=== PATIENT | male | born 1970 | race Caucasian/White ===

== ENCOUNTER 2019-12-10 10:08 | Inpatient (IN) ==
[2019-12-10] MEDS ORDERED: ONDANSETRON INJ 2 MG/ML 2 ML VIAL IV STA (10:50)
[2019-12-10] MEDS ORDERED: SODIUM CHLORIDE 0.9% 1000ML 1,000 ML IV ONE (10:50)
--- NOTE | 2019-12-10 10:56 | Emergency Department Note ---
History of Present Illness General Chief complaint: GI Assessment Stated complaint: LOWER INTESTINE PAIN Time Seen by Provider: 12/10/19 10:29 History of Present Illness Maximum Pain Intensity: 4 49-year-old male who presents to the emergency department with complaints of lower abdominal cramping radiating into the scrotum, as well as intermittent watery diarrhea, nausea and vomiting. The patient reports that his symptoms started on when "my kidneys shut down". The patient reported decreased urinary output, as well as swelling of his legs. The patient reports that he then developed diarrhea on Monday that has since improved. The patient reports a history of Crohn's disease. He has previously seen Dr. Mc with his last colonoscopy performed in 2019. The patient reports that he cannot tolerate the medications that Dr. Mc has treated him with as it "makes me mean". The patient reports that he requested to see a different supply chain coordinator on his last visit, but instead was seen by a physician purchasing assistant who could not provide any additional change in medication. The patient reports that he also requested a new doctor as well, previously seen by Dr. Álvarze. The patient was set up to see Francisco Apple instead. The patient reports that he currently is not taking any medications for his Crohn's disease. He does occasionally take tincture of marijuana and hemp. The patient reports that he cannot get a medical marijuana card. The patient reports that the pain is not relieved with urination or defecation. He denies any urinary symptoms. The patient has not checked his temperature, but has also had chills. He denies any prior abdominal surgeries, and currently rates his discomfort a 4 out of 10. Home Medications Home Medications Medication Instructions Recorded Confirmed Type aspirin 81 mg PO DAILY 12/10/19 12/10/19 History atorvastatin 80 mg PO QAM 12/10/19 12/10/19 History carvedilol 25 mg PO BID 12/10/19 12/10/19 History ezetimibe 10 mg PO QAM 12/10/19 12/10/19 History famotidine 20 mg PO BID 12/10/19 12/10/19 History ferrous sulfate 325 mg PO BID 12/10/19 12/10/19 History hydrochlorothiazide 12.5 mg PO QAM 12/10/19 12/10/19 History imiquimod 1 applic TOPICAL DAILY PRN 12/10/19 12/10/19 History lisinopril 40 mg PO QAM 12/10/19 12/10/19 History omeprazole 40 mg PO QAM 12/10/19 12/10/19 History warfarin 4 mg PO HS 12/10/19 12/10/19 History Allergies Allergy/AdvReac Type Severity Reaction Status Date / Time No Known Allergies Allergy Unverified 12/10/19 12:05 Past Med/Surg History Medical History Acute renal failure (Acute) CAD (coronary artery disease) Crohn's disease GERD (gastroesophageal reflux disease) HLD (hyperlipidemia) HTN (hypertension) Surgical History History of colonoscopy History of coronary artery bypass graft x 1 2011 - [facility] – [place], [place] Figueroa Hx of aortic valve replacement, mechanical (Chronic) 2011 Family History Other Coronary heart disease Social History Preferred Language: Estonian Communication Ability: Effective Rigging Up Man Required: No Beliefs That Will Affect Care: None marital status: Single Current Living Situation: Alone current occupational status: unemployed Other Information That Helps Us Care for You: No Feels Safe at Home: Yes Safety Concerns: Feels Safe At This Time Smoking Status: Former smoker Hx Alcohol Use: No Hx Substance Use: Yes substance use type: marijuana Last Used Substance: Days (ago) Last Used Substance Other:: monday Review of Systems 10 system review was performed and was negative except for pertinent positives and negatives as indicated in history of present illness Physical Exam Vital Signs Vital Signs - 24 hr 12/10/19 10:25 12/10/19 12:00 Temperature 36.7 C Temperature Source Oral Pulse Rate 88 Pulse Rate [Right Finger] 88 Pulse Rhythm [Right Finger] Regular Pulse Strength [Right Finger] Normal Respiratory Rate 20 20 Respiratory Effort / Characteristics Non-Labored Spontaneous Non-Labored Spontaneous Respiratory Depth Normal Normal Blood Pressure 115/78 Blood Pressure [Right Arm] 109/60 Blood Pressure Mean 90 Blood Pressure Mean [Right Arm] 76 Blood Pressure Position Sitting Pulse Oximetry 99 99 Oxygen Delivery Method Room Air Room Air Sepsis Recent Fever Within 48 Hours No Sepsis Action Taken by Nursing No Action Required CONSTITUTIONAL: Healthy and well nourished. Patient does not appear acutely ill or toxic. HEENT: Normocephalic, atraumatic. Pupils equal, round and reactive. No scleral icterus or conjunctival injection. NECK: Full active range of motion without discomfort. LYMPHATICS: No cervical chain adenopathy. RESPIRATORY: Clear to auscultation bilaterally with no wheezing, crackles, rhonchi or stridor. CARDIOVASCULAR: Regular rate and rhythm with mechanical heart valve sound. GASTROINTESTINAL: Bowel sounds present in all quadrants. Patient has minimal lower abdominal tenderness to palpation without rigidity, guarding or rebound. Negative CVA tenderness. MUSCULOSKELETAL: Full range of motion of all joints without discomfort. INTEGUMENTARY: No rash or other significant dermatologic conditions noted. HEMATOLOGIC: No ecchymosis or petechiae. PSYCHIATRIC: Positive affect. NEUROLOGIC: No focal neurologic deficits noted. Course Course Patient history and physical exam were performed. Nurse's notes were reviewed. Vital signs were reviewed and were normal. IV access was established, and labs are drawn. The patient was hydrated with a liter normal saline, and administered IV Zofran. Review of labs shows a markedly elevated leukocytosis w ith left shift and bandemia. Creatinine is 1.51, and potassium 3.4. Glucose 133. INR is therapeutic at 2.7. The patient was unable to provide a urine sample for urinalysis. CT of the abdomen and pelvis with IV contrast shows evidence for a perforated sigmoid diverticulitis with a small pneumoperitoneum, and no abscess amenable to interventional drainage. The patient was administered Zosyn 4.5 g IV infusion. The patient refused any analgesics. The case was further discussed with Dr. Velasco, ED attending physician, as well as Dr. Camacho, general surgeon, who came to the emergency department for evaluation, and recommended admission with IV antibiotics; he will continue to follow. The case was then discussed with the [facility] Hospitalist service, who came to the emergency department for further evaluation. Please see their dictations for further treatment and final disposition. Administered Medications Discontinued Medications Sodium Chloride (Nss 1000ml) 1,000 mls @ 999 mls/hr IV .Q1H1M ONE Stop: 12/10/19 11:50 Last Infusion: 12/10/19 12:04 Dose: 0 mls/hr Documented by: [id number] Admin: 12/10/19 11:01 Dose: 999 mls/hr Documented by: [id number] Piperacillin Sod/Tazobactam Sod (Zosyn) 4.5 gm in 120 mls @ 240 mls/hr IV NOW ONE Stop: 12/10/19 13:05 Last Infusion: 12/10/19 14:12 Dose: 0 mls/hr Documented by: [id number] Admin: 12/10/19 12:53 Dose: 240 mls/hr Documented by: [id number] Pantoprazole Sodium 40 mg/ (Syringe) 10 mls @ 5 mls/min IV NOW STA Stop: 12/10/19 14:10 Last Admin: 12/10/19 14:53 Dose: 5 mls/min Documented by: [id number] Ioversol (Optiray 320 100ml) 94 ml IV ONCE PRN PRN Reason: Interaction Checking Stop: 12/14/19 12:06 Last Admin: 12/10/19 12:08 Dose: 94 ml Documented by: [id number] Ondansetron HCl (Zofran) 4 mg IV NOW STA Stop: 12/10/19 10:51 Last Admin: 12/10/19 11:00 Dose: 4 mg Documented by: [id number] Medical Decision Making Medical Records Attestation: I reviewed the patient's medical records. Home Medications Current Medication List: was personally reviewed by me Laboratory Data Attestation: I reviewed the patient's lab results. Result diagrams: 12/10/19 11:00 12/10/19 11:00 Lab Results 12/10/19 12/10/19 12/10/19 Range/Units 11:00 11:00 11:00 WBC 24.11 H (4.8-10.8) K/uL RBC 4.68 L (4.7-6.1) M/uL Hgb 15.4 (14.0-18.0) g/dL Hct 44.7 (42-52) % MCV 95.5 (80-100) fL MCH 32.9 (25-34) pg MCHC 34.5 (32-36) g/dL RDW Std Deviation 44.5 (36.4-46.3) fL RDW Coeff of Giovani 12.7 (11.5-14.5) % Plt Count 326 (130-400) K/uL MPV 10.7 H (7.4-10.4) fL Immature Gran % (Auto) 0.4 % Neut % (Auto) 87.3 % Lymph % (Auto) 6.0 % [place] % (Auto) 5.7 % Eos % (Auto) 0.4 % Baso % (Auto) 0.2 % Immature Gran # (Auto) 0.09 H (0.00-0.02) K/uL Neut # (Auto) 21.07 H (1.4-6.5) K/uL Lymph # (Auto) 1.44 (1.2-3.4) K/uL [place] # (Auto) 1.38 H (0.11-0.59) K/uL Eos # (Auto) 0.09 (0-0.5) K/uL Baso # (Auto) 0.04 (0-0.2) K/uL ESR 67 H (0-14) mm/hr PT (9.0-12.0) Seconds INR (0.9-1.1) APTT (21.0-31.0) Seconds PTT Ratio Sodium 139 (136-145) mmol/L Potassium 3.4 L (3.5-5.1) mmol/L Chloride 106 (98-107) mmol/L Carbon Dioxide 28 (21-32) mmol/L Anion Gap 5.0 (3-11) BUN 19 H (7-18) mg/dl Creatinine 1.51 H (0.6-1.4) mg/dl Est Cr Clr Drug Dosing 75.1 ml/min Est GFR ( Amer) 61.5 Est GFR (Non-Af Amer) 53.1 BUN/Creatinine Ratio 12.7 (10-20) Glucose 133 H (70-99) mg/dl Estimat Average Glucose mg/dl Hemoglobin A1c (4.5-5.6) % Calcium 8.3 L (8.5-10.1) mg/dl Total Bilirubin 0.7 (0.2-1) mg/dl AST 31 (15-37) U/L ALT 51 (12-78) U/L Alkaline Phosphatase 91 (45-117) U/L Total Protein 7.7 (6.4-8.2) gm/dl Albumin 2.9 L (3.4-5.0) gm/dl Globulin 4.8 H (2.5-4.0) gm/dl Albumin/Globulin Ratio 0.6 L (0.9-2) Lipase 131 (73-393) U/L Specimen Hemolysis 12/10/19 12/10/19 Range/Units 11:00 11:35 WBC (4.8-10.8) K/uL RBC (4.7-6.1) M/uL Hgb (14.0-18.0) g/dL Hct (42-52) % MCV (80-100) fL MCH (25-34) pg MCHC (32-36) g/dL RDW Std Deviation (36.4-46.3) fL RDW Coeff of Giovani (11.5-14.5) % Plt Count (130-400) K/uL MPV (7.4-10.4) fL Immature Gran % (Auto) % Neut % (Auto) % Lymph % (Auto) % [place] % (Auto) % Eos % (Auto) % Baso % (Auto) % Immature Gran # (Auto) (0.00-0.02) K/uL Neut # (Auto) (1.4-6.5) K/uL Lymph # (Auto) (1.2-3.4) K/uL [place] # (Auto) (0.11-0.59) K/uL Eos # (Auto) (0-0.5) K/uL Baso # (Auto) (0-0.2) K/uL ESR (0-14) mm/hr PT 27.3 H (9.0-12.0) Seconds INR 2.7 H (0.9-1.1) APTT 43.9 H (21.0-31.0) Seconds PTT Ratio 1.6 Sodium (136-145) mmol/L Potassium (3.5-5.1) mmol/L Chloride (98-107) mmol/L Carbon Dioxide (21-32) mmol/L Anion Gap (3-11) BUN (7-18) mg/dl Creatinine (0.6-1.4) mg/dl Est Cr Clr Drug Dosing ml/min Est GFR ( Amer) Est GFR (Non-Af Amer) BUN/Creatinine Ratio (10-20) Glucose (70-99) mg/dl Estimat Average Glucose 108 mg/dl Hemoglobin A1c 5.4 (4.5-5.6) % Calcium (8.5-10.1) mg/dl Total Bilirubin (0.2-1) mg/dl AST (15-37) U/L ALT (12-78) U/L Alkaline Phosphatase (45-117) U/L Total Protein (6.4-8.2) gm/dl Albumin (3.4-5.0) gm/dl Globulin (2.5-4.0) gm/dl Albumin/Globulin Ratio (0.9-2) Lipase (73-393) U/L Specimen Hemolysis Imaging Data Attestation: I personally reviewed and interpreted this imaging study as follows: My Impression: My interpretation of a CT of the abdomen and pelvis with IV contrast shows evidence for a perforated diverticulitis with a small pneumoperitoneum. No large abscess collection is noted. Radiologist report was also reviewed. Radiologist's Impression: ABDOMEN AND PELVIS CT WITH IV CONTRAST CT DOSE: 1463.24 mGy.cm HISTORY: Generalized abdominal pain. History of Crohn's disease. TECHNIQUE: Multiaxial CT images of the abdomen and pelvis were performed follo wing the use of intravenous contrast. A dose lowering technique was utilized adhering to the principles of ALARA. COMPARISON STUDY: None. FINDINGS: The lung bases are essentially clear. Small amount of scattered pneumoperitoneum seen within the upper abdomen. Mild thickening of the proximal sigmoid colon containing multiple diverticula. There is pericolonic inflammatory change, an inflamed diverticulum, and adjacent extraluminal gas consistent with a perforated acute diverticulitis. Small pelvic abscesses posterior to the proximal sigmoid colon and extending into the deep pelvis. These appear to be partially connected. Dominant pericolonic abscess measures 3 cm. The abscess within the deep pelvis measures 4.4 cm. No evidence for bowel obstruction. Normal appendix. No suspicious lytic or blastic osseous lesions. Old, healed right-sided rib fractures. Poststernotomy changes. Surgical clips within the right groin. No retroperitoneal lymphadenopathy. Subcentimeter hypodense lesion within the left hepatic lobe is too small to characterize. The gallbladder, pancreas, and spleen are unremarkable. Normal adrenal glands. Multiple bilateral renal hypodense lesions. The majority of these are subcentimeter in size and technically too small to characterize. Dominant lesion within the upper pole the left kidney measures 3.3 cm and is consistent with a cyst. The main portal vein is patent. Mild bilateral perinephric edema. This is likely chronic. No hydronephrosis. IMPRESSION: Perforated acute sigmoid diverticulitis which accounts for the pneumoperitoneum. There are few small pelvic abscesses as described above. These are not amenable to percutaneous drainage given their small size and location. Blood Pressure Blood Pressure Findings: Normal blood pressure MDM Narrative Patient presents the emergency department with complaint of generalized lower abdominal pain, decreased urine output and chills. CT findings today does show evidence for a perforated diverticulitis and small pneumoperitoneum. The patient also has known history of Crohn's disease. The patient is afebrile, but does have a markedly elevated leukocytosis. Additional laboratory studies are not suggestive of pancreatitis, cholecystitis or hepatitis. UTI has not been ruled out as the patient has not been able to provide a urine sample. At this point, I do not suspect sepsis. Impression & Plan Perforation of sigmoid colon due to diverticulitis Discharge Plan Visit Data *Final* Discharge Date/Time: 12/10/19 15:16 Chief Complaint: GI Assessment Stated Complaint: LOWER INTESTINE PAIN ED Provider: Ellis Velasco ED Midlevel Provider: Ozzy Sanches Discharge Problem: Perforation of sigmoid colon due to diverticulitis Patient Disposition: Admitted As Inpatient Discharge Instructions Interventions: ED Discharge Assessment Last Done: 12/10/19 15:16
[2019-12-10 11:17] LABS: Hematocrit (blood only) 44.7 % (42-52); Hemoglobin 15.4 g/dL (14.0-18.0); Mean Corpuscular Hemoglobin 32.9 pg (25-34); Mean Corpuscular Hgb Conc 34.5 g/dL (32-36); Mean Corpuscular Volume 95.5 fL (80-100); Mean Platelet Volume 10.7 fL (7.4-10.4); Platelet Count 326 K/uL (130-400); RDW Coefficient of Variation 12.7 % (11.5-14.5); RDW Standard Deviation 44.5 fL (36.4-46.3); Red Blood Count 4.68 M/uL (4.7-6.1); White Blood Count 24.11 K/uL (4.8-10.8)
[2019-12-10 11:40] LABS: Albumin Globulin Ratio 0.6 (0.9-2); Albumin Level 2.9 gm/dl (3.4-5.0); BUN Creatinine Ratio 12.7 (10-20); Bilirubin,Total 0.7 mg/dl (0.2-1); Calcium 8.3 mg/dl (8.5-10.1); Creatinine Clr Calc Pharmacy 75.1 ml/min; Est GFR (African American) 61.5; Est GFR (Non-African American) 53.1; Globulin 4.8 gm/dl (2.5-4.0); Potassium 3.4 mmol/L (3.5-5.1); Total Protein 7.7 gm/dl (6.4-8.2)
[2019-12-10 11:47] LABS: Basophils # (auto) 0.04 K/uL (0-0.2); Basophils % (auto) 0.2 %; Eosinophils # (auto) 0.09 K/uL (0-0.5); Eosinophils % (auto) 0.4 %; Immature Granulocytes # (auto) 0.09 K/uL (0.00-0.02); Immature Granulocytes % (auto) 0.4 %; Lymphocytes # (auto) 1.44 K/uL (1.2-3.4); Monocytes # (auto) 1.38 K/uL (0.11-0.59); Monocytes % (auto) 5.7 %; Neutrophils # (auto) 21.07 K/uL (1.4-6.5); Neutrophils % (auto) 87.3 %
[2019-12-10 12:00] LABS: INR 2.7 (0.9-1.1); Partial Thromboplastin Ratio 1.6; Partial Thromboplastin Time 43.9 Seconds (21.0-31.0); Prothrombin Time 27.3 Seconds (9.0-12.0)
[2019-12-10] MEDS ORDERED: IOVERSOL 100ml IV PRN (12:07)
--- NOTE | 2019-12-10 12:33 | CT Scan Report ---
ABDOMEN AND PELVIS CT WITH IV CONTRAST CT DOSE: 1463.24 mGy.cm HISTORY: Generalized abdominal pain. History of Crohn's disease. TECHNIQUE: Multiaxial CT images of the abdomen and pelvis were performed following the use of intrave nous contrast. A dose lowering technique was utilized adhering to the principles of ALARA. COMPARISON STUDY: None. FINDINGS: The lung bases are essentially clear. Small amount of scattered pneumoperitoneum seen withi n the upper abdomen. Mild thickening of the proximal sigmoid colon containing multiple diverticula. T here is pericolonic inflammatory change, an inflamed diverticulum, and adjacent extraluminal gas cons istent with a perforated acute diverticulitis. Small pelvic abscesses posterior to the proximal sigmo id colon and extending into the deep pelvis. These appear to be partially connected. Dominant pericol onic abscess measures 3 cm. The abscess within the deep pelvis measures 4.4 cm. No evidence for bowel obstruction. Normal appendix. No suspicious lytic or blastic osseous lesions. Old, healed right-side d rib fractures. Poststernotomy changes. Surgical clips within the right groin. No retroperitoneal ly mphadenopathy. Subcentimeter hypodense lesion within the left hepatic lobe is too small to characteri ze. The gallbladder, pancreas, and spleen are unremarkable. Normal adrenal glands. Multiple bilateral renal hypodense lesions. The majority of these are subcentimeter in size and technically too small t o characterize. Dominant lesion within the upper pole the left kidney measures 3.3 cm and is consiste nt with a cyst. The main portal vein is patent. Mild bilateral perinephric edema. This is likely master in chancery sam. No hydronephrosis. IMPRESSION: Perforated acute sigmoid diverticulitis which accounts for the pneumoperitoneum. There are few small pelvic abscesses as described above. These are not amenable to percutaneous drainage given their smal l size and location. ACT 112: Negative or not required by law. Electronically signed by: Gonzalo Wei M.D. 12/10/2019 12:32 PM
[2019-12-10] MEDS ORDERED: PIPERACILL/TAZOBAC CONSULT ACTIVE PRN ×2 (12:36→13:28)
[2019-12-10] MEDS ORDERED: PIPERACILLIN/TAZOBACTAM 4.5 GM/120 ML BAG IV ONE (12:36)
[2019-12-10] MEDS ORDERED: D5W AND 1/2NSS 1,000 ML IV SCH (13:30)
--- NOTE | 2019-12-10 13:58 | Surgery Consultation ---
Date of Consultation December 10, 2019 Assessment & Plan (1) Perforation of sigmoid colon due to diverticulitis: Several small abscesses, no acute abdominal findings treat with IV abx, bowel rest may repeat CT in a few days if not improving hold coumadin Dr Camacho- as above- would cont with ice only for 48 hrs then very slowly advance diet He will need IV antibiotics for 5 to 7 days and likely 2 to 3 weeks total. We may consider a PICC line For IV antibiotics at home. Depending on his progress we will consider rescanning him at some point If he requires an urgent operation he will most likely need a temporary colostomy- History of Present Illness History of Present Illness 49 y/o male was feeling tired on Monday, had diarrhea on Monday and by Monday was having lower abdominal pain, chills and fever. Had small loose BM, passing some flatus. History of Crohn's, has had colonoscopy, no history of diverticulitis. Allergies Allergy/AdvReac Type Severity Reaction Status Date / Time No Known Allergies Allergy Unverified 12/10/19 12:05 Home Medications Home Medications Medication Instructions Recorded Confirmed Type aspirin 81 mg PO DAILY 12/10/19 12/10/19 History atorvastatin 80 mg PO QAM 12/10/19 12/10/19 History carvedilol 25 mg PO BID 12/10/19 12/10/19 History ezetimibe 10 mg PO QAM 12/10/19 12/10/19 History famotidine 20 mg PO BID 12/10/19 12/10/19 History ferrous sulfate 325 mg PO BID 12/10/19 12/10/19 History hydrochlorothiazide 12.5 mg PO QAM 12/10/19 12/10/19 History imiquimod 1 applic TOPICAL DAILY PRN 12/10/19 12/10/19 History lisinopril 40 mg PO QAM 12/10/19 12/10/19 History omeprazole 40 mg PO QAM 12/10/19 12/10/19 History warfarin 4 mg PO HS 12/10/19 12/10/19 History Patient History Medical History Acute renal failure (Acute) CAD (coronary artery disease) Crohn's disease GERD (gastroesophageal reflux disease) HLD (hyperlipidemia) HTN (hypertension) Surgical History History of colonoscopy History of coronary artery bypass graft x 1 2012 - [facility] – [place], [place] Figueroa Hx of aortic valve replacement, mechanical (Chronic) 2012 Family History Other Coronary heart disease Social History Preferred Language: [place]ese Communication Ability: Effective Dog Handler Or Trainer Required: No Beliefs That Will Affect Care: None marital status: Single Current Living Situation: Alone current occupational status: unemployed Other Information That Helps Us Care for You: No Feels Safe at Home: Yes Safety Concerns: Feels Safe At This Time Smoking Status: Former smoker Hx Alcohol Use: No Hx Substance Use: Yes substance use type: marijuana Last Used Substance: Days (ago) Last Used Substance Other:: monday Review of Systems Constitutional: + chills and + sweats Gastrointestinal: + abdominal pain Physical Exam Constitutional: WD/WN, vitals as above Respiratory: normal respiratory effort, lungs clear to auscultation Cardiovascular: RRR, no murmur, no edema Gastrointestinal (Abdomen): Inspection/Auscultation: abdomen not distended Percussion/Palpation: + abdomen tender (moderate LLQ, lower midline) and abdomen soft Results & Data Vital Signs (Past 12 Hours) Vital Signs Temp Pulse Pulse Resp BP BP Pulse Ox 12/10/19 12:00 88 20 109/60 99 12/10/19 10:25 36.7 C 88 20 115/78 99 PG Care Time/CCT Total # of Minutes Spent Total Time Spent with Patient: Total time spent is greater than 50% in coordination of care (as documented) at patient's floor/unit and/or counseling patient: Coding Level of Care Code 88522 Inpt Consult Level 3 Diagnoses Perforation of sigmoid colon due to diverticulitis K57.20
[2019-12-10] MEDS ORDERED: PANTOprazole 40 MG in SYRINGE 0 ML IV STA (14:09)
--- NOTE | 2019-12-10 14:19 | History & Physical Report ---
Date of Service December 10, 2019 Assessment & Plan (1) Perforation of sigmoid colon due to diverticulitis: Pt is 49 y/o M with PMH aortic valve replacement with mechanical valve, aortic root repair in 2011 on Coumadin, CAD s/p CABG, HTN, HLD, Crohn's, GERD, depression presented to ER with c/o lower abdominal pain x several days with one episode of vomiting and one soft BM today and chills. In ER pt afebrile, P: 88, R: 20, BP: 115/78, 99% on RA. WBC: 24, H/H: 15/44, BUN: 19, Cr: 1.5, GFR: 53 -In ER given 1L NSS, Zosyn, Zofran -Lactic acid pending -Blood cultures pending (drawn after initial Zosyn given in ER) -Zosyn -IVF -NPO -General surgery consulted, Dr Camacho aware and recommends conservative treatment at this time -CBC, CMP in am (2) Hypokalemia: K: 3.4 -Replace and monitor (3) TANMAY (acute kidney injury): Cr: 1.5, GFR: 53; Baseline Cr: 1.2 with GFR>60 -IVF -Hold lisinopril, HCTZ at this time -Monitor renal functions -Avoid nephrotoxic agents when possible (4) Hx of aortic valve replacement, mechanical: H/O aortic valve replacement with mechanical valve, aortic root repair in 2011 on Coumadin. Follows with [facility] and out patient records report INR goal 2-3. INR: 2.7 -Hold Coumadin -Plan to transition to IV Heparin when INR <2.0 -INR in AM (5) CAD (coronary artery disease): S/P CABG in 2012 -Hold aspirin, statin at this time -Continue carvedilol (6) HTN (hypertension): Stable -Continue carvedilol -Hold lisinopril, HCTZ at this time (7) Crohn's disease: No longer on medication treatment. Previously followed with [facility] however no longer following (8) GERD (gastroesophageal reflux disease): -Convert po PPI to IV for now DVT Prophylaxis -INR: 2.7, plan to start IV Heparin when INR<2.0 Full Code as per discussion with pt Follows with Dr Apple for routine care Pt was seen and care coordinated with Dr Hernández. See addendum History of Present Illness Chief Complaint: Abdominal pain Primary Care Provider: Francisco Apple DO Pt is 49 y/o M with PMH aortic valve replacement with mechanical valve, aortic root repair in 2011 on Coumadin, CAD s/p CABG, HTN, HLD, Crohn's, GERD, depression presented to ER with c/o abdominal pain x several days. Pt states several days ago had some abdominal cramping and decreased urination and was not eating or drinking much. He then started feeling some improvement and was able to eat a little a couple of days ago. Pt states yesterday started with lower abdominal pain radiating to scrotum. Reports vomited once this morning approx 45-60 minutes after taking his pills. Reports soft BM this am. He states felt chilled, did not take his temperature. Pt not currently taking any medications for his Crohn's. Previously was on sulfasalazine and pt states was unable to tolerate steroids. He reports disagreement with Dr Mc with [facility] and stopped follow up. He has instead been using cannibis and hemp to treat his symptoms. He reports he is no longer taking duloxetine for depression. Denies diaphoresis, hematemesis, melena, hematochezia, GERONIMO, dizziness, syncope, vision changes, neck pain, CP, SOB, orthopnea, palpitations, cough, sore throat, choking, otalgia, rhinorrhea, scrotal edema or discoloration, penile pain or discharge, paresthesias, weakness, extremity weakness, edema, rashes, dysuria, hematuria, back pain. Allergies Allergy/AdvReac Type Severity Reaction Status Date / Time No Known Allergies Allergy Unverified 12/10/19 12:05 Home Medications Home Medications Medication Instructions Recorded Confirmed Type aspirin 81 mg PO DAILY 12/10/19 12/10/19 History atorvastatin 80 mg PO QAM 12/10/19 12/10/19 History carvedilol 25 mg PO BID 12/10/19 12/10/19 History ezetimibe 10 mg PO QAM 12/10/19 12/10/19 History famotidine 20 mg PO BID 12/10/19 12/10/19 History ferrous sulfate 325 mg PO BID 12/10/19 12/10/19 History hydrochlorothiazide 12.5 mg PO QAM 12/10/19 12/10/19 History imiquimod 1 applic TOPICAL DAILY PRN 12/10/19 12/10/19 History lisinopril 40 mg PO QAM 12/10/19 12/10/19 History omeprazole 40 mg PO QAM 12/10/19 12/10/19 History warfarin 4 mg PO HS 12/10/19 12/10/19 History Past Med/Surg History Medical History (Updated 12/10/19 @ 14:35 by Olga Read PA-C) Acute renal failure (Acute) CAD (coronary artery disease) Crohn's disease GERD (gastroesophageal reflux disease) HLD (hyperlipidemia) HTN (hypertension) Surgical History (Updated 12/10/19 @ 14:31 by Olga Read PA-C) History of colonoscopy History of coronary artery bypass graft x 1 2011 - [facility] [place], Dr Figueroa Hx of aortic valve replacement, mechanical (Chronic) 2011 Family History (Updated 12/10/19 @ 14:30 by Olga Read PA-C) Other Coronary heart disease Social History Preferred Language: Telugu 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 [employer] Required: No Beliefs That Will Affect Care: None marital status: Single Current Living Situation: Alone current occupational status: unemployed Other Information That Helps Us Care for You: No Feels Safe at Home: Yes Safety Concerns: Feels Safe At This Time Smoking Status: Former smoker Hx Alcohol Use: No Hx Substance Use: Yes substance use type: marijuana Last Used Substance: Days (ago) Last Used Substance Other:: monday Review of Systems Review of Systems: All systems reviewed & are unremarkable except as noted in HPI & below Physical Exam Physical Exam: General: no distress, obese Head: normocephalic, atraumatic Eyes: PERRL, EOM's intact, conjunctiva non-injected, anicteric ENT: normal inspection external ears, nose, mucous membranes moist Neck: supple, trachea midline Lungs: clear, no respiratory distress, no wheezing/rhonchi/rales CV: RRR, +click, no pretibial edema Abd: normal BS, protuberant, soft, + tenderness to palpation RLQ, LLQ, greater to LLQ Groin: scrotum without edema or erythema, non-tender to palpation Ext: no cyanosis, no calf tenderness Neuro: A&O x 3, no focal deficits noted, normal affect Skin: warm, dry Results & Data Results & Data ([facility]) Vital Signs (Past 12 Hours) Vital Signs Temp Pulse Pulse Resp BP BP Pulse Ox 12/10/19 12:00 88 20 109/60 99 12/10/19 10:25 36.7 C 88 20 115/78 99 Laboratory Results Short CBC 12/10/19 12/10/19 Range/Units 11:00 11:00 WBC 24.11 H (4.8-10.8) K/uL Hgb 15.4 (14.0-18.0) g/dL Hct 44.7 (42-52) % Plt Count 326 (130-400) K/uL Creatinine 1.51 H (0.6-1.4) mg/dl BMP 12/10/19 11:00 Sodium 139 Potassium 3.4 L Chloride 106 Carbon Dioxide 28 BUN 19 H Creatinine 1.51 H Glucose 133 H Calcium 8.3 L Liver Function 12/10/19 Range/Units 11:00 Total Bilirubin 0.7 (0.2-1) mg/dl AST 31 (15-37) U/L ALT 51 (12-78) U/L Alkaline Phosphatase 91 (45-117) U/L Albumin 2.9 L (3.4-5.0) gm/dl Diagnostic Findings CT ABD/PELVIS: IMPRESSION: Perforated acute sigmoid diverticulitis which accounts for the pneumoperitoneum. There are few small pelvic abscesses as described above. These are not amenable to percutaneous drainage given their small size and location. Code Status & VTE Plan VTE Prophylaxis Plan VTE Prophylaxis will be ordered: Yes Supervising Physician Co-Signing Physician Notes I, Dr. 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 as systemic anticoagulation for the valve and has not been following with [facility] gastroenterology closely because of patients dissatisfaction and problems with affording medicine for treatment of Crohns disease who presents to the hospital for abdominal pain and found to have leukocytosis of 24,[address] abdomen imaging Perforated acute sigmoid diverticulitis which accounts for the pneumoperitoneum and also there are few small pelvic abscesses On Physical Exam General HEENT: normal Lungs: clear to auscultation bilaterally Heart: regular rate Abdomen: soft, bowel sounds present, no guarding, no abdominal rigidity Extremities/Neurology: moves all extremities : normal testicles and scrotum Psych: patient is emotionally labile when talking about his experiences with outpatient gastroenterology clinic ASSESSMENT AND PLAN Perforated acute sigmoid diverticulitis Pelvic Abscess Crohns Disease Aortic valve replacement with mechanical vlave On chronic systemic anticoagulation with Coumadin Acute Kidney Injury -keep NPO and give d5 normal saline for hydration and calories, trend the creatinine -reason for NPO primarily in case general surgical consult needs to do surgery if his abdomen problems deteriorate. Give PPI -patient has aortic valve replacement and target INR with Coumadin is 2.5 to 3.5. admission INR is 2.7. because patient generally stable but can still have possibility for surgery, will hold Coumadin but will not give vitamin K at this time. When INR is less than 2.5, then recommend that patient to be started on IV heparin drip while inpatient -patient agrees to see [facility] gastroenterology for initial inpatient consultation but not sure if he stills wants to follow with [facility] gastroenterology in future -agree with other plans as documented by physician bilingual legal assistant -Full Code Status as per my discussion with patient -My colleague will be taking over the care of the patient as consult service hospitalist starting on 12/11/2019
[2019-12-10 14:29] LABS: Estimated Average Glucose 108 mg/dl; Hemoglobin A1C 5.4 % (4.5-5.6)
[2019-12-10] MEDS ORDERED: ACETAMINOPHEN 1000 MG/100 ML IV IV PRN (15:45)
[2019-12-10] MEDS ORDERED: ONDANSETRON INJ 2 MG/ML 2 ML VIAL IV PRN (15:45)
[2019-12-10] MEDS: D5W AND 1/2NSS 1,000 ML IV SCH (16:27)
[2019-12-10] MEDS ORDERED: POTASSIUM CHLORIDE / WTR 10 MEQ/100 ML PLCT IV ONE (16:30)
[2019-12-10] MEDS ORDERED: NSS + 20MEQ KCL 20 MEQ/1,000 ML BAG IV SCH (16:30)
[2019-12-10 16:44] LABS: C Reactive Protein 12.1 mg/dl (0-0.29)
[2019-12-10] MEDS: PIPERACILLIN/TAZOBACTAM 3.375 GM in DEXTROSE 5% 100 ML IV SCH (19:07)
[2019-12-10] MEDS: HYDROmorphone INJ 0.5 MG/0.5 ML SYR IV PRN (21:01)
[2019-12-10] MEDS: PANTOprazole 40 MG in SYRINGE 0 ML IV SCH (21:03)
[2019-12-10] MEDS: carvediloL 25 MG TAB PO SCH (21:03)
[2019-12-11] MEDS: PIPERACILLIN/TAZOBACTAM 3.375 GM in DEXTROSE 5% 100 ML IV SCH ×3 (02:01→18:54)
--- NOTE | 2019-12-11 07:00 | Surgery Progress Note ---
Date of Service December 11, 2019 Assessment & Plan (1) Perforation of sigmoid colon due to diverticulitis: cont ice only IV atbx ask ID to see re choice of IV atbx and possible home IV atbx may ambulate Lovenox / IV Heparin as needed per med team until sure he will not require operation Subjective some lower abd / scrotal pain- says improved afeb, HR nl Review of Systems Review of Systems: All systems reviewed & are unremarkable except as noted in HPI & below Physical Exam Constitutional: well nourished; no acute distress and not ill appearing Respiratory: normal respiratory effort; no respiratory distress Cardiovascular: Rate/Rhythm: regular rate Gastrointestinal (Abdomen): Inspection/Auscultation: normal bowel sounds; abdomen not distended Skin: no rashes, warm and dry Neurologic: awake Psychiatric: Orientation: alert Results & Data Vital Signs (Past 12 Hours) Vital Signs Temp Pulse Pulse Resp BP BP Pulse Ox 12/11/19 05:15 80 12/11/19 03:21 37.1 C 79 20 99/62 L 96 12/11/19 00:21 37.1 C 81 20 109/65 96 12/10/19 19:26 37.4 C 80 18 98/61 L 97 PG Care Time/CCT Total # of Minutes Spent Total Time Spent with Patient: Total time spent is greater than 50% in coordination of care (as documented) at patient's floor/unit and/or counseling patient: Coding Level of Care Code 58628 Inpt Consult Level 3 Diagnoses Perforation of sigmoid colon due to diverticulitis K57.20
[2019-12-11 07:16] LABS: Hematocrit (blood only) 42.7 % (42-52); Hemoglobin 14.6 g/dL (14.0-18.0); Mean Corpuscular Hgb Conc 34.2 g/dL (32-36); Mean Corpuscular Volume 96.4 fL (80-100); Mean Platelet Volume 10.9 fL (7.4-10.4); Platelet Count 361 K/uL (130-400); RDW Coefficient of Variation 12.9 % (11.5-14.5); RDW Standard Deviation 45.2 fL (36.4-46.3); Red Blood Count 4.43 M/uL (4.7-6.1); White Blood Count 26.55 K/uL (4.8-10.8)
[2019-12-11 07:27] LABS: INR 3.2 (0.9-1.1); Prothrombin Time 31.6 Seconds (9.0-12.0)
[2019-12-11 07:45] LABS: Basophils # (auto) 0.05 K/uL (0-0.2); Basophils % (auto) 0.2 %; Eosinophils # (auto) 0.08 K/uL (0-0.5); Eosinophils % (auto) 0.3 %; Immature Granulocytes # (auto) 0.12 K/uL (0.00-0.02); Immature Granulocytes % (auto) 0.5 %; Lymphocytes # (auto) 2.59 K/uL (1.2-3.4); Lymphocytes % (auto) 9.8 %; Monocytes # (auto) 1.67 K/uL (0.11-0.59); Monocytes % (auto) 6.3 %; Neutrophils # (auto) 22.04 K/uL (1.4-6.5); Neutrophils % (auto) 82.9 %
[2019-12-11 07:48] LABS: Albumin Level 2.7 gm/dl (3.4-5.0); BUN Creatinine Ratio 8.8 (10-20); Calcium 8.1 mg/dl (8.5-10.1); Creatinine Clr Calc Pharmacy 71.6 ml/min; Est GFR (African American) 58.7; Est GFR (Non-African American) 50.6; Potassium 3.6 mmol/L (3.5-5.1)
[2019-12-11 07:55] LABS: Albumin Globulin Ratio 0.6 (0.9-2); Bilirubin,Total 1.3 mg/dl (0.2-1); Globulin 4.9 gm/dl (2.5-4.0); Total Protein 7.6 gm/dl (6.4-8.2)
[2019-12-11] MEDS: D5W AND 1/2NSS 1,000 ML IV SCH (09:36)
[2019-12-11] MEDS: PANTOprazole 40 MG in SYRINGE 0 ML IV SCH ×2 (09:37→21:01)
[2019-12-11] MEDS: carvediloL 25 MG TAB PO SCH ×2 (09:37→21:00)
[2019-12-11] MEDS: HYDROmorphone INJ 0.5 MG/0.5 ML SYR IV PRN ×2 (09:43→19:44)
--- NOTE | 2019-12-11 09:53 | Gastrointestinal Consultation ---
Date of Consultation December 11, 2019 Assessment & Plan (1) Perforation of sigmoid colon due to diverticulitis: 49 year old male with PMH aortic valve replacement with mechanical valve, aortic root repair in 2011 on Coumadin, CAD s/p CABG, HTN, HLD, Crohn's, GERD, depression presented to ER with c/o lower abdominal pain x several days with one episode of vomiting and one soft BM today CTAP w/ perforated diverticulitis, surgery following Will need OP colonoscopy in 6-8 weeks Continue management of diverticulitis per surgery NPO IV ABX Antiemetics PRN Analgesia PRN Can trial Bentyl 10 mg TID PRN cramping Should be re-evaluated by [facility] as an OP but does not wish to see myself (Lisy Vang) or Dr. Mc. Thank you for allowing us to participate in the care of this patient. Please call with any acute changes, questions or concerns. Please see addendum below with additional recommendation from my supervising physician. Supervising Physician Co-Signing Physician Notes I have seen and examined the patient and discussed the management with EMILY Salazar. 49 yo male with a history of crohn's (somewhat disjointed care) not on any type of maintenance therapy, admitted through the ER for abdominal pain and findings of a perforated sigmoid diverticulitis. He is passing gas. PE noteable for being alert and oriented, normal excursion of chest, no respiratory distress, abd soft nt slight distension, no lower extremity edema Labs/imaging reviewed No plans for scope Outpatient GI follow-up for crohn's if he would like to Continue abx for at least 14 days given perforation, resumption of diet as tolerated. GI to sign off. History of Present Illness Reason for Consultation: crohns Requesting Physician: Felix Attending Physician: Ronald Washington MD History of Present Illness 49 y/o M with PMH aortic valve replacement with mechanical valve, aortic root repair in 2011 on Coumadin, CAD s/p CABG, HTN, HLD, Crohn's, GERD, depression presented to ER with c/o abdominal pain x several days - admitted with suspected perforated diverticulitis. GI asked to evaluate as he has IBD - not on therapy for Crohns. Pt was seen and evaluated, chart reviewed. Last evaluated in clinic by myself as he had wanted to establish with a new provider - at that time he did not wish to be evaluated further more by a Nurse Practitoner and was planning on following up with a different physician in my group. He has yet to follow up with a physician. No longer wishes to be followed by Dr. Mc or myself in our group. Suggests since he was last seen in [facility] he has stopped his IBD medications. From an IBD standpoint notes he had been doing very well. No abd pain. tolerating PO intake. Formed brown stools. No black or bloody stools. Suggests Monday, symptoms started. Lower abd pain and testicicular pain. Sharp/severe stabbing. Does not radiate. Was associated with nausea/vomiting with resolved. Notes soft stools. No black or bloody stools. In ER pt afebrile, P: 88, R: 20, BP: 115/78, 99% on RA. WBC: 24, H/H: 15/44, BUN: 19, Cr: 1.5, GFR: 53 CTAP w/ Perforated acute sigmoid diverticulitis which accounts for the pneumoperitoneum. There are few small pelvic abscesses as described above. These are not amenable to percutaneous drainage given their small size and location. Allergies Allergy/AdvReac Type Severity Reaction Status Date / Time No Known Allergies Allergy Unverified 12/10/19 12:05 Home Medications Home Medications Medication Instructions Recorded Confirmed Type aspirin 81 mg PO DAILY 12/10/19 12/10/19 History atorvastatin 80 mg PO QAM 12/10/19 12/10/19 History carvedilol 25 mg PO BID 12/10/19 12/10/19 History ezetimibe 10 mg PO QAM 12/10/19 12/10/19 History famotidine 20 mg PO BID 12/10/19 12/10/19 History ferrous sulfate 325 mg PO BID 12/10/19 12/10/19 History hydrochlorothiazide 12.5 mg PO QAM 12/10/19 12/10/19 History imiquimod 1 applic TOPICAL DAILY PRN 12/10/19 12/10/19 History lisinopril 40 mg PO QAM 12/10/19 12/10/19 History omeprazole 40 mg PO QAM 12/10/19 12/10/19 History warfarin 4 mg PO HS 12/10/19 12/10/19 History Patient History Medical History Acute renal failure (Acute) CAD (coronary artery disease) Crohn's disease GERD (gastroesophageal reflux disease) HLD (hyperlipidemia) HTN (hypertension) Surgical History History of colonoscopy History of coronary artery bypass graft x 1 2012 - [facility] [place] Figueroa Hx of aortic valve replacement, mechanical (Chronic) 2012 Family History Other Coronary heart disease Social History Preferred Language: Malay 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 Beliefs That Will Affect Care: None marital status: Single Current Living Situation: Alone current occupational status: unemployed Other Information That Helps Us Care for You: No Feels Safe at Home: Yes Safety Concerns: Feels Safe At This Time Smoking Status: Former smoker Hx Alcohol Use: No Hx Substance Use: Yes substance use type: marijuana Last Used Substance: Days (ago) Last Used Substance Other:: monday Review of Systems Constitutional: no fever Respiratory: no cough and no dyspnea Cardiovascular: no chest pain and no dyspnea Gastrointestinal: + abdominal pain; no coffee ground emesis, no cramping, no blood in stools and no melena Physical Exam Constitutional: no acute distress Respiratory: normal respiratory effort Gastrointestinal (Abdomen): Percussion/Palpation: + abdomen tender and abdomen soft Skin: no rashes, warm and dry Results & Data ([facility]) Vital Signs (Past 12 Hours) Vital Signs Temp Pulse Pulse Resp BP BP Pulse Ox 12/11/19 07:58 37.2 C 61 18 93/55 L 98 12/11/19 07:30 77 12/11/19 05:15 80 12/11/19 03:21 37.1 C 79 20 99/62 L 96 12/11/19 00:21 37.1 C 81 20 109/65 96 Laboratory Results 12/11/19 12/11/19 12/11/19 Range/Units 06:36 06:36 06:36 WBC 26.55 H (4.8-10.8) K/uL RBC 4.43 L (4.7-6.1) M/uL Hgb 14.6 (14.0-18.0) g/dL Hct 42.7 (42-52) % MCV 96.4 (80-100) fL MCH 33.0 (25-34) pg MCHC 34.2 (32-36) g/dL RDW Std Deviation 45.2 (36.4-46.3) fL RDW Coeff of Giovani 12.9 (11.5-14.5) % Plt Count 361 (130-400) K/uL MPV 10.9 H (7.4-10.4) fL Immature Gran % (Auto) 0.5 % Neut % (Auto) 82.9 % Lymph % (Auto) 9.8 % [place] % (Auto) 6.3 % Eos % (Auto) 0.3 % Baso % (Auto) 0.2 % Immature Gran # (Auto) 0.12 H (0.00-0.02) K/uL Neut # (Auto) 22.04 H (1.4-6.5) K/uL Lymph # (Auto) 2.59 (1.2-3.4) K/uL [place] # (Auto) 1.67 H (0.11-0.59) K/uL Eos # (Auto) 0.08 (0-0.5) K/uL Baso # (Auto) 0.05 (0-0.2) K/uL ESR (0-14) mm/hr PT 31.6 H (9.0-12.0) Seconds INR 3.2 H (0.9-1.1) APTT (21.0-31.0) Seconds PTT Ratio Sodium 137 (136-145) mmol/L Potassium 3.6 (3.5-5.1) mmol/L Chloride 106 (98-107) mmol/L Carbon Dioxide 25 (21-32) mmol/L Anion Gap 6.0 (3-11) BUN 14 (7-18) mg/dl Creatinine 1.57 H (0.6-1.4) mg/dl Est Cr Clr Drug Dosing 71.6 ml/min Est GFR ( Amer) 58.7 Est GFR (Non-Af Amer) 50.6 BUN/Creatinine Ratio 8.8 L (10-20) Glucose 126 H (70-99) mg/dl Estimat Average Glucose mg/dl Hemoglobin A1c (4.5-5.6) % Lactate (0.4-2.0) mmol/L Calcium 8.1 L (8.5-10.1) mg/dl Total Bilirubin 1.3 H D (0.2-1) mg/dl AST 22 (15-37) U/L ALT 43 (12-78) U/L Alkaline Phosphatase 116 (45-117) U/L Total Creatine Kinase (39-308) U/L C-Reactive Protein (0-0.29) mg/dl Total Protein 7.6 (6.4-8.2) gm/dl Albumin 2.7 L (3.4-5.0) gm/dl Globulin 4.9 H (2.5-4.0) gm/dl Albumin/Globulin Ratio 0.6 L (0.9-2) Lipase (73-393) U/L Specimen Hemolysis 12/10/19 12/10/19 12/10/19 Range/Units 16:07 14:54 11:35 WBC (4.8-10.8) K/uL RBC (4.7-6.1) M/uL Hgb (14.0-18.0) g/dL Hct (42-52) % MCV (80-100) fL MCH (25-34) pg MCHC (32-36) g/dL RDW Std Deviation (36.4-46.3) fL RDW Coeff of Giovani (11.5-14.5) % Plt Count (130-400) K/uL MPV (7.4-10.4) fL Immature Gran % (Auto) % Neut % (Auto) % Lymph % (Auto) % [place] % (Auto) % Eos % (Auto) % Baso % (Auto) % Immature Gran # (Auto) (0.00-0.02) K/uL Neut # (Auto) (1.4-6.5) K/uL Lymph # (Auto) (1.2-3.4) K/uL [place] # (Auto) (0.11-0.59) K/uL Eos # (Auto) (0-0.5) K/uL Baso # (Auto) (0-0.2) K/uL ESR (0-14) mm/hr PT 27.3 H (9.0-12.0) Seconds INR 2.7 H (0.9-1.1) APTT 43.9 H (21.0-31.0) Seconds PTT Ratio 1.6 Sodium (136-145) mmol/L Potassium (3.5-5.1) mmol/L Chloride (98-107) mmol/L Carbon Dioxide (21-32) mmol/L Anion Gap (3-11) BUN (7-18) mg/dl Creatinine (0.6-1.4) mg/dl Est Cr Clr Drug Dosing ml/min Est GFR ( Amer) Est GFR (Non-Af Amer) BUN/Creatinine Ratio (10-20) Glucose (70-99) mg/dl Estimat Average Glucose mg/dl Hemoglobin A1c (4.5-5.6) % Lactate 1.8 (0.4-2.0) mmol/L Calcium (8.5-10.1) mg/dl Total Bilirubin (0.2-1) mg/dl AST (15-37) U/L ALT (12-78) U/L Alkaline Phosphatase (45-117) U/L Total Creatine Kinase 100 (39-308) U/L C-Reactive Protein 12.10 H (0-0.29) mg/dl Total Protein (6.4-8.2) gm/dl Albumin (3.4-5.0) gm/dl Globulin (2.5-4.0) gm/dl Albumin/Globulin Ratio (0.9-2) Lipase (73-393) U/L Specimen Hemolysis 12/10/19 12/10/19 12/10/19 Range/Units 11:00 11:00 11:00 WBC (4.8-10.8) K/uL RBC (4.7-6.1) M/uL Hgb (14.0-18.0) g/dL Hct (42-52) % MCV (80-100) fL MCH (25-34) pg MCHC (32-36) g/dL RDW Std Deviation (36.4-46.3) fL RDW Coeff of Giovani (11.5-14.5) % Plt Count (130-400) K/uL MPV (7.4-10.4) fL Immature Gran % (Auto) % Neut % (Auto) % Lymph % (Auto) % [place] % (Auto) % Eos % (Auto) % Baso % (Auto) % Immature Gran # (Auto) (0.00-0.02) K/uL Neut # (Auto) (1.4-6.5) K/uL Lymph # (Auto) (1.2-3.4) K/uL [place] # (Auto) (0.11-0.59) K/uL Eos # (Auto) (0-0.5) K/uL Baso # (Auto) (0-0.2) K/uL ESR 67 H (0-14) mm/hr PT (9.0-12.0) Seconds INR (0.9-1.1) APTT (21.0-31.0) Seconds PTT Ratio Sodium 139 (136-145) mmol/L Potassium 3.4 L (3.5-5.1) mmol/L Chloride 106 (98-107) mmol/L Carbon Dioxide 28 (21-32) mmol/L Anion Gap 5.0 (3-11) BUN 19 H (7-18) mg/dl Creatinine 1.51 H (0.6-1.4) mg/dl Est Cr Clr Drug Dosing 75.1 ml/min Est GFR ( Amer) 61.5 Est GFR (Non-Af Amer) 53.1 BUN/Creatinine Ratio 12.7 (10-20) Glucose 133 H (70-99) mg/dl Estimat Average Glucose 108 mg/dl Hemoglobin A1c 5.4 (4.5-5.6) % Lactate (0.4-2.0) mmol/L Calcium 8.3 L (8.5-10.1) mg/dl Total Bilirubin 0.7 (0.2-1) mg/dl AST 31 (15-37) U/L ALT 51 (12-78) U/L Alkaline Phosphatase 91 (45-117) U/L Total Creatine Kinase (39-308) U/L C-Reactive Protein (0-0.29) mg/dl Total Protein 7.7 (6.4-8.2) gm/dl Albumin 2.9 L (3.4-5.0) gm/dl Globulin 4.8 H (2.5-4.0) gm/dl Albumin/Globulin Ratio 0.6 L (0.9-2) Lipase 131 (73-393) U/L Specimen Hemolysis 12/10/19 Range/Units 11:00 WBC 24.11 H (4.8-10.8) K/uL RBC 4.68 L (4.7-6.1) M/uL Hgb 15.4 (14.0-18.0) g/dL Hct 44.7 (42-52) % MCV 95.5 (80-100) fL MCH 32.9 (25-34) pg MCHC 34.5 (32-36) g/dL RDW Std Deviation 44.5 (36.4-46.3) fL RDW Coeff of Giovani 12.7 (11.5-14.5) % Plt Count 326 (130-400) K/uL MPV 10.7 H (7.4-10.4) fL Immature Gran % (Auto) 0.4 % Neut % (Auto) 87.3 % Lymph % (Auto) 6.0 % [place] % (Auto) 5.7 % Eos % (Auto) 0.4 % Baso % (Auto) 0.2 % Immature Gran # (Auto) 0.09 H (0.00-0.02) K/uL Neut # (Auto) 21.07 H (1.4-6.5) K/uL Lymph # (Auto) 1.44 (1.2-3.4) K/uL [place] # (Auto) 1.38 H (0.11-0.59) K/uL Eos # (Auto) 0.09 (0-0.5) K/uL Baso # (Auto) 0.04 (0-0.2) K/uL ESR (0-14) mm/hr PT (9.0-12.0) Seconds INR (0.9-1.1) APTT (21.0-31.0) Seconds PTT Ratio Sodium (136-145) mmol/L Potassium (3.5-5.1) mmol/L Chloride (98-107) mmol/L Carbon Dioxide (21-32) mmol/L Anion Gap (3-11) BUN (7-18) mg/dl Creatinine (0.6-1.4) mg/dl Est Cr Clr Drug Dosing ml/min Est GFR ( Amer) Est GFR (Non-Af Amer) BUN/Creatinine Ratio (10-20) Glucose (70-99) mg/dl Estimat Average Glucose mg/dl Hemoglobin A1c (4.5-5.6) % Lactate (0.4-2.0) mmol/L Calcium (8.5-10.1) mg/dl Total Bilirubin (0.2-1) mg/dl AST (15-37) U/L ALT (12-78) U/L Alkaline Phosphatase (45-117) U/L Total Creatine Kinase (39-308) U/L C-Reactive Protein (0-0.29) mg/dl Total Protein (6.4-8.2) gm/dl Albumin (3.4-5.0) gm/dl Globulin (2.5-4.0) gm/dl Albumin/Globulin Ratio (0.9-2) Lipase (73-393) U/L Specimen Hemolysis
[2019-12-11] MEDS: D5NSS + 20MEQ KCL 20 MEQ/1,000 ML BAG IV SCH ×2 (10:54→18:43)
--- NOTE | 2019-12-11 12:19 | Infectious Disease Consult ---
Date of Consultation December 11, 2019 Assessment & Plan (1) Perforation of sigmoid colon due to diverticulitis: continue zosyn for now, follow blood cultures. no current plan for OR unless clinical change, appears to be somewhat improved clinically today. trend wbc. will likely need several weeks of abx. History of Present Illness Attending Physician: Ronald Washington MD pt admitted with several days of abd pain, denies f/c at home. ct in ER revealed perforated sigmoid diverticulitis with multiple small abscesses and free air. He was started on zosyn, npo, surgery following. No plans for OR at this time. blood cultures pending. tolerating abx. wbc initially 24, today 26. creat 1.5, LFTs normal. ESR 67. afebrile since admission, sleeping on my exam. awakens easily. states pressure and pain improved today but not resolved. no f/c. no cp, sob, cough. not hungry, denies n/v. ID consulted for home IV abx. Allergies Allergy/AdvReac Type Severity Reaction Status Date / Time No Known Allergies Allergy Unverified 12/10/19 12:05 Home Medications Home Medications Medication Instructions Recorded Confirmed Type aspirin 81 mg PO DAILY 12/10/19 12/10/19 History atorvastatin 80 mg PO QAM 12/10/19 12/10/19 History carvedilol 25 mg PO BID 12/10/19 12/10/19 History ezetimibe 10 mg PO QAM 12/10/19 12/10/19 History famotidine 20 mg PO BID 12/10/19 12/10/19 History ferrous sulfate 325 mg PO BID 12/10/19 12/10/19 History hydrochlorothiazide 12.5 mg PO QAM 12/10/19 12/10/19 History imiquimod 1 applic TOPICAL DAILY PRN 12/10/19 12/10/19 History lisinopril 40 mg PO QAM 12/10/19 12/10/19 History omeprazole 40 mg PO QAM 12/10/19 12/10/19 History warfarin 4 mg PO HS 12/10/19 12/10/19 History Patient History Medical History Acute renal failure (Acute) CAD (coronary artery disease) Crohn's disease GERD (gastroesophageal reflux disease) HLD (hyperlipidemia) HTN (hypertension) Surgical History History of colonoscopy History of coronary artery bypass graft x 1 2012 - [facility] [place], Dr Figueroa Hx of aortic valve replacement, mechanical (Chronic) 2012 Family History Other Coronary heart disease Social History Preferred Language: Irish Communication Ability: Effective [employer] Required: No Beliefs That Will Affect Care: None marital status: Single Current Living Situation: Alone current occupational status: unemployed Other Information That Helps Us Care for You: No Feels Safe at Home: Yes Safety Concerns: Feels Safe At This Time Smoking Status: Former smoker Hx Alcohol Use: No Hx Substance Use: Yes substance use type: marijuana Last Used Substance: Days (ago) Last Used Substance Other:: monday Review of Systems Review of Systems: All systems reviewed & are unremarkable except as noted in HPI & below Physical Exam Constitutional: WD/WN, vitals as above Eyes: PERRL, conjunctivae normal, anicteric sclerae ENMT: external ear and nose normal, oropharynx normal Neck: normal visual inspection Respiratory: normal respiratory effort, lungs clear to auscultation Cardiovascular: RRR, no murmur, no edema Gastrointestinal (Abdomen): Inspection/Auscultation: abdomen not distended Percussion/Palpation: + abdomen tender and abdomen soft; no guarding and abdomen not rigid Musculoskeletal: no cyanosis or clubbing, extremities motor strength 5/5 Skin: no rashes, warm and dry Psychiatric: A+Ox3, euthymic affect Results & Data ([facility]) Vital Signs (Past 12 Hours) Vital Signs Temp Pulse Pulse Resp BP BP Pulse Ox 12/11/19 11:43 36.9 C 69 18 102/59 L 98 12/11/19 07:58 37.2 C 61 18 93/55 L 98 12/11/19 07:30 77 12/11/19 05:15 80 12/11/19 03:21 37.1 C 79 20 99/62 L 96 12/11/19 00:21 37.1 C 81 20 109/65 96 PG Care Time/CCT Total # of Minutes Spent Total Time Spent with Patient: Total time spent is greater than 50% in coordination of care (as documented) at patient's floor/unit and/or counseling patient: Coding Level of Care Code 43760 Inpt Consult Level 4 Diagnoses Perforation of sigmoid colon due to diverticulitis K57.20
--- NOTE | 2019-12-11 18:23 | Hospitalist Progress Note ---
Date of Service December 11, 2019 Assessment & Plan (1) Perforation of sigmoid colon due to diverticulitis: per Dr. Lorenz's notes: Pt is 49 y/o M with PMH aortic valve replacement with mechanical valve, aortic root repair in 2012 on Coumadin, CAD s/p CABG, HTN, HLD, Crohn's, GERD, depression presented to ER with c/o lower abdominal pain x several days with one episode of vomiting and one soft BM today and chills. In ER pt afebrile, P: 88, R: 20, BP: 115/78, 99% on RA. WBC: 24, H/H: 15/44, B UN: 19, Cr: 1.5, GFR: 53 Blood cultures: pending Gen surg consulted- no surgery recommended at this time on IV Zosyn, NPO , IV fluids continue to monitor closely (2) Hypokalemia: K: 3.6 -Replace and monitor (3) TANMAY (acute kidney injury): Cr: 1.5, GFR: 53; Baseline Cr: 1.2 with GFR>60 -IVF -Hold lisinopril, HCTZ at this time -Monitor renal functions (4) Hx of aortic valve replacement, mechanical: H/O aortic valve replacement with mechanical valve, aortic root repair in 2012 on Coumadin. Follows with [facility] and out patient records report INR goal 2-3. INR: 3.2 -Hold Coumadin -Plan to transition to IV Heparin when INR <2.5 -INR in AM -- will discuss with Gen Surg when Coumadin can be resumed (5) CAD (coronary artery disease): S/P CABG in 2012 -Hold aspirin, statin at this time -Continue carvedilol (6) HTN (hypertension): Stable -Continue carvedilol -Hold lisinopril, HCTZ (7) Crohn's disease: No longer on medication treatment. Previously followed with [facility] at [facility] however no longer following (8) GERD (gastroesophageal reflux disease): -Convert po PPI to IV for now DVT Prophylaxis -INR: 3.2, plan to start IV Heparin when INR<2.5 Full Code as per discussion with pt Follows with Dr Apple for routine care Admission and Anticipated Discharge Date Admission Date: December 10, 2019 Subjective ff up for perforated diverticulitis seen resting in bed, comfortable states lower abdominal pain/scrotal pain is less than yesterday denies problems with urination, or BM no nausea, chills no other symptoms Review of Systems Review of Systems: All systems reviewed & are unremarkable except as noted in HPI & below Physical Exam Physical Exam: General- oriented x 3, not in distress, speaks in sentences with no effort or accessory muscle use Head- atraumatic Eyes- PERRL, EOMI, anicteric ENT- oropharynx clear Neck- supple, no JVD, no adenopathy, no thyromegaly; carotids +2/2, no bruits appreciated Lungs- clear to auscultation bilaterally, no rales/wheezes Heart- normal rate, regular rhythm; no murmur, no gallop, no rub appreciated Abdomen- normal bowel sounds, nondistended, soft, (+) mild tenderness on the lower quadrants, no masses or hepatosplenomegaly Extremities- no pretibial edema, no calf tenderness; peripheral pulses intact Neuro- alert, oriented x 3; CN 2-12 grossly intact; motor 5/5 bilaterally;sensation 100% on all extremities; no other gross focal neurologic d eficits Skin- warm & dry Results & Data Results & Data ([facility]) Vital Signs (Past 12 Hours) Vital Signs Temp Pulse Pulse Resp BP BP Pulse Ox 12/11/19 16:00 37.5 C 81 18 92/53 L 97 12/11/19 11:43 36.9 C 69 18 102/59 L 98 12/11/19 07:58 37.2 C 61 18 93/55 L 98 12/11/19 07:30 77 Laboratory Results Laboratory Results - last 24 hr 12/11/19 12/11/19 12/11/19 06:36 06:36 06:36 WBC 26.55 H RBC 4.43 L Hgb 14.6 Hct 42.7 MCV 96.4 MCH 33.0 MCHC 34.2 RDW Std Deviation 45.2 RDW Coeff of Giovani 12.9 Plt Count 361 MPV 10.9 H Immature Gran % (Auto) 0.5 Neut % (Auto) 82.9 Lymph % (Auto) 9.8 [place] % (Auto) 6.3 Eos % (Auto) 0.3 Baso % (Auto) 0.2 Immature Gran # (Auto) 0.12 H Neut # (Auto) 22.04 H Lymph # (Auto) 2.59 [place] # (Auto) 1.67 H Eos # (Auto) 0.08 Baso # (Auto) 0.05 PT 31.6 H INR 3.2 H Sodium 137 Potassium 3.6 Chloride 106 Carbon Dioxide 25 Anion Gap 6.0 BUN 14 Creatinine 1.57 H Est Cr Clr Drug Dosing 71.6 Est GFR ( Amer) 58.7 Est GFR (Non-Af Amer) 50.6 BUN/Creatinine Ratio 8.8 L Glucose 126 H Calcium 8.1 L Total Bilirubin 1.3 H D AST 22 ALT 43 Alkaline Phosphatase 116 Total Protein 7.6 Albumin 2.7 L Globulin 4.9 H Albumin/Globulin Ratio 0.6 L
[2019-12-11 18:58] LABS: Appearance Urine Clear (Clear); Bacteria Urine Automated Negative (Negative); Blood Urine 2+ (Negative); Color Urine Dark Yellow; Glucose Urine UA Negative (Negative); Ketones Urine Negative (Negative); Leukocyte Esterase Urine Negative (Negative); Nitrite Urine Negative (Negative); Protein Urine 1+ (Negative); Specific Gravity Urine 1.026 (1.000-1.030); Urobilinogen Urine Positive (Negative)
[2019-12-11 18:59] LABS: Bilirubin Urine Negative (Negative); Ictotest Urine Negative (Negative)
[2019-12-12] MEDS: PIPERACILLIN/TAZOBACTAM 3.375 GM in DEXTROSE 5% 100 ML IV SCH ×3 (02:40→19:25)
[2019-12-12] MEDS: D5NSS + 20MEQ KCL 20 MEQ/1,000 ML BAG IV SCH ×2 (02:41→10:11)
[2019-12-12] MEDS ORDERED: HYDROCODONE/ACETAMOPHEN 5/325MG TAB PO PRN ×2 (07:13)
--- NOTE | 2019-12-12 07:19 | Surgery Progress Note ---
Date of Service December 12, 2019 Assessment & Plan (1) Perforation of sigmoid colon due to diverticulitis: try clear liquids- will adv very slowly IV atbx- ID following possible home IV atbx may ambulate Lovenox / IV Heparin as needed per med team until sure he will not require operation- hold Coumadin for now possibly start over weekend if stable decrease IV fluid, order po pain med Subjective some lower abd / scrotal pain- says improved afeb, HR nl Review of Systems Review of Systems: All systems reviewed & are unremarkable except as noted in HPI & below Physical Exam Physical Exam: General- oriented x 3, not in distress Head- atraumatic Eyes- anicteric Neck- supple, Lungs- no resp distress Heart- normal rate, regular rhythm Abdomen- soft , lower abd discomfort Extremities- no edema, warm Neuro- alert, Skin- warm & dry Results & Data Vital Signs (Past 12 Hours) Vital Signs Temp Pulse Pulse Pulse Resp BP BP 12/12/19 03:23 73 12/12/19 02:40 36.8 C 80 14 99/60 L 12/12/19 00:13 37.1 C 70 16 103/62 12/11/19 20:00 36.9 C 81 18 90/51 L Pulse Ox 12/12/19 03:23 12/12/19 02:40 96 12/12/19 00:13 97 12/11/19 20:00 95 PG Care Time/CCT Total # of Minutes Spent Total Time Spent with Patient: Total time spent is greater than 50% in coordination of care (as documented) at patient's floor/unit and/or counseling patient: Coding Level of Care Code 58459 Inpt Consult Level 3 Diagnoses Perforation of sigmoid colon due to diverticulitis K57.20
[2019-12-12 07:36] LABS: Prothrombin Time 29.5 Seconds (9.0-12.0)
[2019-12-12 08:17] LABS: BUN Creatinine Ratio 7.5 (10-20); Calcium 8.5 mg/dl (8.5-10.1); Creatinine Clr Calc Pharmacy 92.4 ml/min; Est GFR (African American) 79.6; Est GFR (Non-African American) 68.7; Magnesium 2.3 mg/dl (1.8-2.4); Potassium 3.6 mmol/L (3.5-5.1)
[2019-12-12] MEDS: carvediloL 25 MG TAB PO SCH ×2 (08:37→21:55)
[2019-12-12] MEDS: PANTOprazole 40 MG in SYRINGE 0 ML IV SCH ×2 (08:39→21:24)
[2019-12-12 10:25] LABS: Albumin Level 2.4 gm/dl (3.4-5.0); Bilirubin Direct 0.4 mg/dl (0-0.2); Total Protein 7.3 gm/dl (6.4-8.2)
[2019-12-12 10:32] LABS: Basophils # (auto) 0.04 K/uL (0-0.2); Basophils % (auto) 0.2 %; Eosinophils # (auto) 0.14 K/uL (0-0.5); Eosinophils % (auto) 0.6 %; Hematocrit (blood only) 40.5 % (42-52); Hemoglobin 13.4 g/dL (14.0-18.0); Immature Granulocytes # (auto) 0.06 K/uL (0.00-0.02); Immature Granulocytes % (auto) 0.3 %; Lymphocytes % (auto) 10.2 %; Mean Corpuscular Hemoglobin 32.7 pg (25-34); Mean Corpuscular Hgb Conc 33.1 g/dL (32-36); Mean Corpuscular Volume 98.8 fL (80-100); Mean Platelet Volume 10.8 fL (7.4-10.4); Monocytes # (auto) 1.71 K/uL (0.11-0.59); Monocytes % (auto) 7.6 %; Neutrophils # (auto) 18.19 K/uL (1.4-6.5); Neutrophils % (auto) 81.1 %; Platelet Count 350 K/uL (130-400); RDW Coefficient of Variation 12.8 % (11.5-14.5); RDW Standard Deviation 46.3 fL (36.4-46.3); White Blood Count 22.44 K/uL (4.8-10.8)
--- NOTE | 2019-12-12 12:29 | Infectious Disease Progress Nt ---
Date of Service December 12, 2019 Assessment & Plan (1) Perforation of sigmoid colon due to diverticulitis: continue zosyn for now, follow blood cultures. no current plan for OR unless clinical change, appears to be somewhat improved clinically today. trend wbc. will likely need several weeks of abx. Today is my final day at [facility], will need alternative ID provider for ongoing ID care. Admission and Anticipated Discharge Date Admission Date: December 10, 2019 Subjective pt remains afebrile. remains on zoysn, tolerating well. wbc slighlty improved to 21. to start clears today per surgery. creat 1.2. blood cultures negative at 24 hours. Results & Data ([facility]) Vital Signs (Past 12 Hours) Vital Signs Temp Pulse Pulse Pulse Resp BP Pulse Ox 12/12/19 11:00 36.8 C 74 18 123/64 98 12/12/19 07:31 36.8 C 82 18 95/59 L 96 12/12/19 07:21 70 12/12/19 03:23 73 12/12/19 02:40 36.8 C 80 14 99/60 L 96 Laboratory Results Microbiology 12/10/19 16:07 Blood Aerobic Blood Culture - Preliminary No growth in Aerobic bottle after 24 hours. 12/10/19 16:07 Blood Anaerobic Blood Culture - Preliminary No growth in Anaerobic bottle after 24 hours. 12/10/19 16:17 Blood Aerobic Blood Culture - Preliminary No growth in Aerobic bottle after 24 hours. 12/10/19 16:17 Blood Anaerobic Blood Culture - Preliminary No growth in Anaerobic bottle after 24 hours. PG Care Time/CCT Total # of Minutes Spent Total Time Spent with Patient: Total time spent is greater than 50% in coordination of care (as documented) at patient's floor/unit and/or counseling patient: Coding Level of Care Code 27085 Subseq Hosp Care Lvl 1 Diagnoses Perforation of sigmoid colon due to diverticulitis K57.20
[2019-12-12] MEDS: HYDROmorphone INJ 0.5 MG/0.5 ML SYR IV PRN (13:09)
--- NOTE | 2019-12-12 17:34 | Hospitalist Progress Note ---
Date of Service December 12, 2019 Assessment & Plan (1) Perforation of sigmoid colon due to diverticulitis: per Dr. Lorenz's notes: Pt is 49 y/o M with PMH aortic valve replacement with mechanical valve, aortic root repair in 2012 on Coumadin, CAD s/p CABG, HTN, HLD, Crohn's, GERD, depression presented to ER with c/o lower abdominal pain x several days with one episode of vomiting and one soft BM today and chills. In ER pt afebrile, P: 88, R: 20, BP: 115/78, 99% on RA. WBC: 24, H/H: 15/44, B UN: 19, Cr: 1.5, GFR: 53 Blood cultures: Negative Gen surg consulted- no surgery recommended at this time on IV Zosyn, diet advanced to clear liquids today, IV fluids continue to monitor closely Continue to hold Coumadin for possible emergency surgery (2) Hypokalemia: K: 3.6 -Replace and monitor (3) TANMAY (acute kidney injury): Cr: 1.5, GFR: 53; Baseline Cr: 1.2 with GFR>60 Resolved with IV fluids -Hold lisinopril, HCTZ at this time -Monitor renal function (4) Hx of aortic valve replacement, mechanical: H/O aortic valve replacement with mechanical valve, aortic root repair in 2011 on Coumadin. Follows with [facility] and out patient records report INR goal 2-3. INR: 3.2 -Hold Coumadin -Plan to transition to IV Heparin when INR <2.5 -INR in AM --- Continue to hold Coumadin for possible emergency surgery (5) CAD (coronary artery disease): S/P CABG in 2012 -Hold aspirin, statin at this time -Continue carvedilol (6) HTN (hypertension): Stable -Continue carvedilol -Hold lisinopril, HCTZ (7) Crohn's disease: No longer on medication treatment. Previously followed with [facility] at [facility] however no longer following (8) GERD (gastroesophageal reflux disease): -Convert po PPI to IV for now DVT Prophylaxis -INR: 3.0, plan to start IV Heparin when INR<2.5 Full Code as per discussion with pt Follows with Dr Apple for routine care Disposition: Pending Anticipate discharge home medically stable, may need IV antibiotics Plan of care discussed with patient in detail All questions answered He is understanding, agreeable, comfortable plan of care Admission and Anticipated Discharge Date Admission Date: December 10, 2019 Subjective Follow-up for perforated diverticulitis Patient having severe pain with bowel movement and flatus today Seen resting in bed, sleeping but easily awakened Shortness of breath, chest pain, dizziness, palpitations No fevers or chills States abdominal pain is improving overall compared to admission No other symptoms Review of Systems Review of Systems: All systems reviewed & are unremarkable except as noted in HPI & below Physical Exam Physical Exam: General- oriented x 3, not in distress, speaks in sentences with no effort or accessory muscle use Eyes- anicteric Neck- no JVD Lungs- clear breath sounds bilaterally, no rales/wheezes Heart- normal rate, regular rhythm; no murmurs Abdomen- normal bowel sounds, nondistended, soft, moderate tenderness left lower quadrant Extremities- no pretibial edema, no calf tenderness Neuro- alert, oriented x 3; no gross focal neurologic deficits Skin- warm & dry Results & Data Results & Data ([facility]) Vital Signs (Past 12 Hours) Vital Signs Temp Pulse Pulse Pulse Resp BP BP 12/12/19 17:26 78 12/12/19 16:00 36.4 C L 63 18 107/67 12/12/19 11:00 36.8 C 74 18 123/64 12/12/19 07:31 36.8 C 82 18 95/59 L 12/12/19 07:21 70 Pulse Ox 12/12/19 17:26 12/12/19 16:00 99 12/12/19 11:00 98 12/12/19 07:31 96 12/12/19 07:21
[2019-12-12] MEDS ORDERED: LORazepam 0.5 MG TAB PO PRN (19:41)
[2019-12-12] MEDS ORDERED: SODIUM CHLORIDE 0.9% 500 ML IV ONE (23:26)
--- NOTE | 2019-12-12 23:28 | Communication Note ---
Date of Service: December 12, 2019 Made aware by RN of low BP. Patient SBP 80s. Asymptomatic as per RN. AP Asymptomatic hypotension Fluid bolus now Decrease maintenance beta-blanca dose Will relay to AM provider.
[2019-12-13 00:01] LABS: Hematocrit (blood only) 36.6 % (42-52); Hemoglobin 12.4 g/dL (14.0-18.0)
[2019-12-13] MEDS: D5NSS + 20MEQ KCL 20 MEQ/1,000 ML BAG IV SCH ×2 (00:54→17:50)
[2019-12-13] MEDS: PIPERACILLIN/TAZOBACTAM 3.375 GM in DEXTROSE 5% 100 ML IV SCH ×3 (01:43→18:53)
--- NOTE | 2019-12-13 07:18 | Surgery Progress Note ---
Date of Service December 13, 2019 Assessment & Plan (1) Perforation of sigmoid colon due to diverticulitis: Continue patient on clear liquids today slowly advance diet over the weekend I do think he will need a PICC line for IV antibiotics at home and will discuss with medical team Dr. Valenzuela is covering over the weekend Review of Systems Review of Systems: All systems reviewed & are unremarkable except as noted in HPI & below Physical Exam Physical Exam: Patient in no distress Results & Data Vital Signs (Past 12 Hours) Vital Signs Temp Pulse Pulse Resp BP Pulse Ox 12/13/19 04:31 37 C 64 19 95/55 L 98 12/13/19 01:19 69 12/13/19 00:57 70 95/56 L 12/12/19 23:31 36.8 C 69 18 88/46 L 96 12/12/19 19:55 36.5 C 66 18 123/66 100 PG Care Time/CCT Total # of Minutes Spent Total Time Spent with Patient: Total time spent is greater than 50% in coordination of care (as documented) at patient's floor/unit and/or counseling patient: Coding Level of Care Code 54400 Subseq Hosp Care Lvl 3 Diagnoses Perforation of sigmoid colon due to diverticulitis K57.20
[2019-12-13 07:36] LABS: Basophils # (auto) 0.03 K/uL (0-0.2); Basophils % (auto) 0.2 %; Eosinophils # (auto) 0.13 K/uL (0-0.5); Eosinophils % (auto) 0.7 %; Hematocrit (blood only) 36.3 % (42-52); Hemoglobin 12.2 g/dL (14.0-18.0); Immature Granulocytes # (auto) 0.08 K/uL (0.00-0.02); Immature Granulocytes % (auto) 0.4 %; Lymphocytes # (auto) 2.31 K/uL (1.2-3.4); Lymphocytes % (auto) 12.6 %; Mean Corpuscular Hgb Conc 33.6 g/dL (32-36); Mean Corpuscular Volume 98.1 fL (80-100); Mean Platelet Volume 10.8 fL (7.4-10.4); Monocytes # (auto) 1.01 K/uL (0.11-0.59); Monocytes % (auto) 5.5 %; Neutrophils # (auto) 14.76 K/uL (1.4-6.5); Neutrophils % (auto) 80.6 %; Platelet Count 352 K/uL (130-400); RDW Coefficient of Variation 12.7 % (11.5-14.5); RDW Standard Deviation 45.6 fL (36.4-46.3); White Blood Count 18.32 K/uL (4.8-10.8)
[2019-12-13 07:43] LABS: INR 2.9 (0.9-1.1); Prothrombin Time 28.8 Seconds (9.0-12.0)
[2019-12-13 08:17] LABS: BUN Creatinine Ratio 5.6 (10-20); Calcium 8.1 mg/dl (8.5-10.1); Est GFR (African American) 90.2; Est GFR (Non-African American) 77.9; Magnesium 2.1 mg/dl (1.8-2.4); Potassium 3.3 mmol/L (3.5-5.1)
[2019-12-13] MEDS: carvediloL 3.125 MG TAB PO SCH ×2 (08:54→21:21)
[2019-12-13] MEDS: PANTOprazole 40 MG in SYRINGE 0 ML IV SCH ×2 (08:55→21:24)
[2019-12-13] MEDS ORDERED: carvediloL 12.5 MG TAB PO SCH ×2 (09:00)
--- NOTE | 2019-12-13 20:20 | Hospitalist Progress Note ---
Date of Service December 13, 2019 Assessment & Plan (1) Perforation of sigmoid colon due to diverticulitis: per Dr. Lorenz's notes: Pt is 49 y/o M with PMH aortic valve replacement with mechanical valve, aortic root repair in 2012 on Coumadin, CAD s/p CABG, HTN, HLD, Crohn's, GERD, depression presented to ER with c/o lower abdominal pain x several days with one episode of vomiting and one soft BM today and chills. In ER pt afebrile, P: 88, R: 20, BP: 115/78, 99% on RA. WBC: 24, H/H: 15/44, B UN: 19, Cr: 1.5, GFR: 53 Blood cultures: Negative Gen surg consulted- no surgery recommended at this time on IV Zosyn, diet advanced to clear liquids, IV fluids continue to monitor closely Continue to hold Coumadin for possible emergency surgery (2) Hypokalemia: K: 3.6 -Replace and monitor (3) TANMAY (acute kidney injury): Cr: 1.5, GFR: 53; Baseline Cr: 1.2 with GFR>60 Resolved with IV fluids -Hold lisinopril, HCTZ at this time -Monitor renal function (4) Hx of aortic valve replacement, mechanical: H/O aortic valve replacement with mechanical valve, aortic root repair in 2012 on Coumadin. Follows with [facility] and out patient records report INR goal 2-3. INR: 3.2 -Hold Coumadin -Plan to transition to IV Heparin when INR <2.5 -INR in AM --- Continue to hold Coumadin for possible emergency surgery (5) CAD (coronary artery disease): S/P CABG in 2012 -Hold aspirin, statin at this time -Continue carvedilol (6) HTN (hypertension): Stable -Continue carvedilol -Hold lisinopril, HCTZ (7) Crohn's disease: No longer on medication treatment. Previously followed with [facility] at [facility] however no longer following (8) GERD (gastroesophageal reflux disease): -Convert po PPI to IV for now DVT Prophylaxis -INR: 2.9, plan to start IV Heparin when INR<2.5 Full Code as per discussion with pt Follows with Dr Apple for routine care Disposition: Pending Anticipate discharge home medically stable, Plan of care discussed with patient in detail All questions answered He is understanding, agreeable, comfortable plan of care Admission and Anticipated Discharge Date Admission Date: December 10, 2019 Subjective Follow-up for perforated diverticulitis Seen resting in bed, comfortable, not in distress Is he feels improved today compared to yesterday Tolerating diet well Less left lower quadrant pain No other symptoms Review of Systems Review of Systems: All systems reviewed & are unremarkable except as noted in HPI & below Physical Exam Physical Exam: General- oriented x 3, not in distress, speaks in sentences with no effort or accessory muscle use Eyes- anicteric Neck- no JVD Lungs- clear breath sounds bilaterally Heart- normal rate, regular rhythm; no murmurs Abdomen- normal bowel sounds, nondistended, soft, nontender Extremities- no pretibial edema, no calf tenderness Neuro- alert, oriented x 3; no gross focal neurologic deficits Skin- warm & dry Results & Data Results & Data ([facility]) Vital Signs (Past 12 Hours) Vital Signs Temp Pulse Pulse Resp BP Pulse Ox 12/13/19 18:49 36.7 C 65 16 132/74 98 12/13/19 15:40 70 12/13/19 15:09 37.2 C 68 16 143/86 H 98 12/13/19 11:19 37 C 59 L 18 131/76 96 Laboratory Results Laboratory Results - last 24 hr 12/12/19 12/12/19 12/12/19 23:53 23:53 23:53 WBC RBC Hgb 12.4 L Hct 36.6 L MCV MCH MCHC RDW Std Deviation RDW Coeff of Giovani Plt Count MPV Immature Gran % (Auto) Neut % (Auto) Lymph % (Auto) [place] % (Auto) Eos % (Auto) Baso % (Auto) Immature Gran # (Auto) Neut # (Auto) Lymph # (Auto) [place] # (Auto) Eos # (Auto) Baso # (Auto) PT INR Sodium Potassium Chloride Carbon Dioxide Anion Gap BUN Creatinine Est Cr Clr Drug Dosing Est GFR ( Amer) Est GFR (Non-Af Amer) BUN/Creatinine Ratio Glucose Lactate 1.0 Calcium Magnesium Blood Type O Positive Antibody Screen NEGATIVE 12/13/19 12/13/19 12/13/19 06:22 06:22 06:22 WBC 18.32 H RBC 3.70 L Hgb 12.2 L Hct 36.3 L MCV 98.1 MCH 33.0 MCHC 33.6 RDW Std Deviation 45.6 RDW Coeff of Giovani 12.7 Plt Count 352 MPV 10.8 H Immature Gran % (Auto) 0.4 Neut % (Auto) 80.6 Lymph % (Auto) 12.6 [place] % (Auto) 5.5 Eos % (Auto) 0.7 Baso % (Auto) 0.2 Immature Gran # (Auto) 0.08 H Neut # (Auto) 14.76 H Lymph # (Auto) 2.31 [place] # (Auto) 1.01 H Eos # (Auto) 0.13 Baso # (Auto) 0.03 PT 28.8 H INR 2.9 H Sodium 142 Potassium 3.3 L Chloride 110 H Carbon Dioxide 26 Anion Gap 7.0 BUN 6 L Creatinine 1.10 Est Cr Clr Drug Dosing 104.0 Est GFR ( Amer) 90.2 Est GFR (Non-Af Amer) 77.9 BUN/Creatinine Ratio 5.6 L Glucose 101 H Lactate Calcium 8.1 L Magnesium 2.1 Blood Type Antibody Screen
[2019-12-13] MEDS ORDERED: POTASSIUM CHLORIDE 20 MEQ TABCR PO STA (20:23)
[2019-12-13] MEDS ORDERED: LORazepam 0.5 MG TAB PO PRN (21:10)
[2019-12-14] MEDS: PIPERACILLIN/TAZOBACTAM 3.375 GM in DEXTROSE 5% 100 ML IV SCH ×3 (02:14→17:42)
[2019-12-14 07:27] LABS: Basophils # (auto) 0.03 K/uL (0-0.2); Basophils % (auto) 0.2 %; Eosinophils # (auto) 0.16 K/uL (0-0.5); Hematocrit (blood only) 37.4 % (42-52); Hemoglobin 12.2 g/dL (14.0-18.0); Immature Granulocytes # (auto) 0.07 K/uL (0.00-0.02); Immature Granulocytes % (auto) 0.4 %; Lymphocytes # (auto) 2.46 K/uL (1.2-3.4); Lymphocytes % (auto) 15.5 %; Mean Corpuscular Hemoglobin 31.8 pg (25-34); Mean Corpuscular Hgb Conc 32.6 g/dL (32-36); Mean Corpuscular Volume 97.4 fL (80-100); Mean Platelet Volume 10.5 fL (7.4-10.4); Monocytes # (auto) 1.02 K/uL (0.11-0.59); Monocytes % (auto) 6.4 %; Neutrophils # (auto) 12.11 K/uL (1.4-6.5); Neutrophils % (auto) 76.5 %; Platelet Count 374 K/uL (130-400); RDW Coefficient of Variation 12.8 % (11.5-14.5); RDW Standard Deviation 45.1 fL (36.4-46.3); Red Blood Count 3.84 M/uL (4.7-6.1); White Blood Count 15.85 K/uL (4.8-10.8)
[2019-12-14 07:35] LABS: INR 2.9 (0.9-1.1); Prothrombin Time 29.2 Seconds (9.0-12.0)
[2019-12-14] MEDS: carvediloL 3.125 MG TAB PO SCH ×2 (07:39→21:11)
[2019-12-14 07:56] LABS: BUN Creatinine Ratio 3.2 (10-20); Calcium 7.9 mg/dl (8.5-10.1); Creatinine Clr Calc Pharmacy 102.4 ml/min; Est GFR (African American) 88.3; Est GFR (Non-African American) 76.2; Magnesium 1.7 mg/dl (1.8-2.4); Potassium 3.8 mmol/L (3.5-5.1)
[2019-12-14] MEDS: PANTOprazole 40 MG in SYRINGE 0 ML IV SCH ×2 (08:50→21:11)
[2019-12-14] MEDS ORDERED: MAGNESIUM SULFATE / D5W 1 GM/100 ML BAG IV ONE (09:00)
[2019-12-14] MEDS: D5NSS + 20MEQ KCL 20 MEQ/1,000 ML BAG IV SCH (10:36)
--- NOTE | 2019-12-14 12:08 | Surgery Progress Note ---
Date of Service December 14, 2019 Assessment & Plan (1) Perforation of sigmoid colon due to diverticulitis: Slowly improving with decrease in symptoms and decrease in leukocytosis. Will advance to full liquids today. Present on Admission?: Yes Supervising Physician Co-Signing Physician Notes I have seen and examined the patient and discussed the management with EMILY Salazar. 49 yo male with a history of crohn's (somewhat disjointed care) not on any type of maintenance therapy, admitted through the ER for abdominal pain and findings of a perforated sigmoid diverticulitis. He is passing gas. PE noteable for being alert and oriented, normal excursion of chest, no respiratory distress, abd soft nt slight distension, no lower extremity edema Labs/imaging reviewed No plans for scope Outpatient GI follow-up for crohn's if he would like to Continue abx for at least 14 days given perforation, resumption of diet as tolerated. GI to sign off. Subjective Slow improvement. Still with discomfort in pelvis, lower abdomen but no further pain. Pressure sensation improving. tolerating liquids with no worsening of symptoms. Bowels are functioning. Review of Systems Review of Systems: All systems reviewed & are unremarkable except as noted in HPI & below Physical Exam Constitutional: WD/WN, vitals as above Respiratory: normal respiratory effort, lungs clear to auscultation Cardiovascular: RRR, no murmur, no edema Gastrointestinal (Abdomen): Inspection/Auscultation: + abdomen distended and normal bowel sounds Percussion/Palpation: + abdomen tender (mild in left lower quadrant) and abdomen soft; no guarding Neurologic: moves all extremities; no focal motor deficits Psychiatric: Orientation: alert and oriented x 3 Results & Data Vital Signs (Past 12 Hours) Vital Signs Temp Pulse Pulse Resp BP Pulse Ox 12/14/19 11:00 36.7 C 62 18 120/71 100 12/14/19 08:00 37.0 C 64 18 117/67 98 12/14/19 04:00 36.8 C 57 L 18 138/83 98 12/14/19 00:38 70 Laboratory Results 12/14/19 12/14/19 12/14/19 Range/Units 06:18 06:18 06:18 WBC 15.85 H (4.8-10.8) K/uL RBC 3.84 L (4.7-6.1) M/uL Hgb 12.2 L (14.0-18.0) g/dL Hct 37.4 L (42-52) % MCV 97.4 (80-100) fL MCH 31.8 (25-34) pg MCHC 32.6 (32-36) g/dL RDW Std Deviation 45.1 (36.4-46.3) fL RDW Coeff of Giovani 12.8 (11.5-14.5) % Plt Count 374 (130-400) K/uL MPV 10.5 H (7.4-10.4) fL Immature Gran % (Auto) 0.4 % Neut % (Auto) 76.5 % Lymph % (Auto) 15.5 % [place] % (Auto) 6.4 % Eos % (Auto) 1.0 % Baso % (Auto) 0.2 % Immature Gran # (Auto) 0.07 H (0.00-0.02) K/uL Neut # (Auto) 12.11 H (1.4-6.5) K/uL Lymph # (Auto) 2.46 (1.2-3.4) K/uL [place] # (Auto) 1.02 H (0.11-0.59) K/uL Eos # (Auto) 0.16 (0-0.5) K/uL Baso # (Auto) 0.03 (0-0.2) K/uL PT 29.2 H (9.0-12.0) Seconds INR 2.9 H (0.9-1.1) Sodium 145 (136-145) mmol/L Potassium 3.8 D (3.5-5.1) mmol/L Chloride 115 H (98-107) mmol/L Carbon Dioxide 27 (21-32) mmol/L Anion Gap 3.0 (3-11) BUN 4 L (7-18) mg/dl Creatinine 1.12 (0.6-1.4) mg/dl Est Cr Clr Drug Dosing 102.4 ml/min Est GFR ( Amer) 88.3 Est GFR (Non-Af Amer) 76.2 BUN/Creatinine Ratio 3.2 L (10-20) Glucose 89 (70-99) mg/dl Calcium 7.9 L (8.5-10.1) mg/dl Magnesium 1.7 L (1.8-2.4) mg/dl
--- NOTE | 2019-12-14 19:15 | Hospitalist Progress Note ---
Date of Service December 14, 2019 Assessment & Plan (1) Perforation of sigmoid colon due to diverticulitis: per Dr. Lorenz's notes: Pt is 49 y/o M with PMH aortic valve replacement with mechanical valve, aortic root repair in 2012 on Coumadin, CAD s/p CABG, HTN, HLD, Crohn's, GERD, depression presented to ER with c/o lower abdominal pain x several days with one episode of vomiting and one soft BM today and chills. In ER pt afebrile, P: 88, R: 20, BP: 115/78, 99% on RA. WBC: 24, H/H: 15/44, B UN: 19, Cr: 1.5, GFR: 53 Blood cultures: Negative Gen surg consulted- no surgery recommended at this time on IV Zosyn, diet advanced to full liquids, IV fluids Clinically improving continue to monitor closely Continue to hold Coumadin for possible emergency surgery (2) Hypokalemia: K: 3.6 -Replace and monitor (3) TANMAY (acute kidney injury): Cr: 1.5, GFR: 53; Baseline Cr: 1.2 with GFR>60 Resolved with IV fluids -Hold lisinopril, HCTZ at this time -Monitor renal function (4) Hx of aortic valve replacement, mechanical: H/O aortic valve replacement with mechanical valve, aortic root repair in 2012 on Coumadin. Follows with [facility] and out patient records report INR goal 2-3. INR: 2.9 -Hold Coumadin -Plan to transition to IV Heparin when INR <2.5 -INR in AM --- Continue to hold Coumadin for possible emergency surgery (5) CAD (coronary artery disease): S/P CABG in 2012 -Hold aspirin, statin at this time -Continue carvedilol (6) HTN (hypertension): Stable -Continue carvedilol -Hold lisinopril, HCTZ (7) Crohn's disease: No longer on medication treatment. Previously followed with [facility] at [facility] however no longer following (8) GERD (gastroesophageal reflux disease): -Convert po PPI to IV for now DVT Prophylaxis -INR: 2.9, plan to start IV Heparin when INR<2.5 Full Code as per discussion with pt Follows with Dr Apple for routine care Disposition: Pending Anticipate discharge home medically stable, Plan of care discussed with patient in detail All questions answered He is understanding, agreeable, comfortable plan of care Admission and Anticipated Discharge Date Admission Date: December 10, 2019 Subjective Follow-up for perforated diverticulitis Seen sleeping but easily awakened, not in distress, comfortable States he feels okay overall Less abdominal pain, tolerating full liquids No other symptoms Review of Systems Review of Systems: All systems reviewed & are unremarkable except as noted in HPI & below Physical Exam Physical Exam: General- oriented x 3, not in distress, speaks in sentences with no effort or accessory muscle use Eyes- anicteric Neck- no JVD Lungs- clear BS, no crackles, no wheezing bilaterally Heart- normal rate, regular rhythm; no murmurs Abdomen- normal bowel sounds, nondistended, soft, nontender Extremities- no pretibial edema, no calf tenderness Neuro- alert, oriented x 3; no gross focal neurologic deficits Skin- warm & dry Results & Data Results & Data ([facility]) Vital Signs (Past 12 Hours) Vital Signs Temp Pulse Pulse Resp BP Pulse Ox 12/14/19 15:06 36.6 C 63 20 134/72 99 12/14/19 15:00 67 12/14/19 11:00 36.7 C 62 18 120/71 100 12/14/19 08:00 37.0 C 64 18 117/67 98
[2019-12-15] MEDS: D5NSS + 20MEQ KCL 20 MEQ/1,000 ML BAG IV SCH ×2 (02:34→19:14)
[2019-12-15] MEDS: PIPERACILLIN/TAZOBACTAM 3.375 GM in DEXTROSE 5% 100 ML IV SCH ×3 (02:36→19:14)
[2019-12-15 07:27] LABS: Basophils # (auto) 0.04 K/uL (0-0.2); Basophils % (auto) 0.3 %; Eosinophils # (auto) 0.18 K/uL (0-0.5); Eosinophils % (auto) 1.2 %; Hematocrit (blood only) 42.1 % (42-52); Hemoglobin 14.2 g/dL (14.0-18.0); Immature Granulocytes # (auto) 0.06 K/uL (0.00-0.02); Immature Granulocytes % (auto) 0.4 %; Lymphocytes # (auto) 2.93 K/uL (1.2-3.4); Lymphocytes % (auto) 19.5 %; Mean Corpuscular Hemoglobin 32.9 pg (25-34); Mean Corpuscular Hgb Conc 33.7 g/dL (32-36); Mean Corpuscular Volume 97.5 fL (80-100); Mean Platelet Volume 9.9 fL (7.4-10.4); Monocytes % (auto) 5.3 %; Neutrophils # (auto) 11.04 K/uL (1.4-6.5); Neutrophils % (auto) 73.3 %; Platelet Count 443 K/uL (130-400); RDW Coefficient of Variation 12.7 % (11.5-14.5); RDW Standard Deviation 45.2 fL (36.4-46.3); Red Blood Count 4.32 M/uL (4.7-6.1); White Blood Count 15.05 K/uL (4.8-10.8)
[2019-12-15] MEDS: carvediloL 3.125 MG TAB PO SCH ×2 (07:38→21:02)
[2019-12-15 07:51] LABS: INR 1.9 (0.9-1.1); Prothrombin Time 19.5 Seconds (9.0-12.0)
[2019-12-15 07:54] LABS: BUN Creatinine Ratio 1.9 (10-20); Calcium 8.4 mg/dl (8.5-10.1); Creatinine Clr Calc Pharmacy 99.4 ml/min; Est GFR (African American) 84.6; Magnesium 1.9 mg/dl (1.8-2.4); Potassium 3.7 mmol/L (3.5-5.1)
[2019-12-15] MEDS: PANTOprazole 40 MG in SYRINGE 0 ML IV SCH ×2 (08:15→20:53)
[2019-12-15] MEDS ORDERED: HEPARIN IV BOLUS 7,000 UNITS in SYRINGE 0 ML IV ONE (11:00)
[2019-12-15] MEDS: HEPARIN SODIUM/DEXTROSE 25,000 UNITS/500 ML BAG IV SCH (11:21)
--- NOTE | 2019-12-15 11:27 | Surgery Progress Note ---
Date of Service December 15, 2019 Assessment & Plan (1) Perforation of sigmoid colon due to diverticulitis: Slowly improving with decrease in symptoms and decrease in leukocytosis. Advance diet today. OK to resume anticoagulation. Subjective Pain/ discomfort almost completely resolved. Tolerated diet advancement. Bowels still functioning. Review of Systems Review of Systems: All systems reviewed & are unremarkable except as noted in HPI & below Physical Exam Constitutional: WD/WN, vitals as above Respiratory: normal respiratory effort, lungs clear to auscultation Cardiovascular: RRR, no murmur, no edema Gastrointestinal (Abdomen): Inspection/Auscultation: normal bowel sounds; abdomen not distended Percussion/Palpation: abdomen soft; abdomen nontender and no guarding Neurologic: moves all extremities; no focal motor deficits Psychiatric: Orientation: alert and oriented x 3 Results & Data Vital Signs (Past 12 Hours) Vital Signs Temp Pulse Pulse Resp BP Pulse Ox 12/15/19 07:00 36.5 C 59 L 18 157/81 H 100 12/15/19 03:14 37.0 C 55 L 18 125/67 98 12/15/19 00:43 58 L 12/14/19 23:51 36.7 C 58 L 18 128/74 98 Laboratory Results Abnormal lab results 12/15/19 12/15/19 12/15/19 Range/Units 07:11 07:11 07:11 WBC 15.05 H (4.8-10.8) K/uL RBC 4.32 L (4.7-6.1) M/uL Plt Count 443 H (130-400) K/uL Immature Gran # (Auto) 0.06 H (0.00-0.02) K/uL Neut # (Auto) 11.04 H (1.4-6.5) K/uL [place] # (Auto) 0.80 H (0.11-0.59) K/uL PT 19.5 H (9.0-12.0) Seconds INR 1.9 H (0.9-1.1) Chloride 113 H (98-107) mmol/L BUN 2 L (7-18) mg/dl BUN/Creatinine Ratio 1.9 L (10-20) Calcium 8.4 L (8.5-10.1) mg/dl
[2019-12-15] MEDS: WARFARIN SOD 4 MG TAB PO SCH (17:02)
[2019-12-15 18:05] LABS: Partial Thromboplastin Ratio 3.7
[2019-12-15 18:12] LABS: Partial Thromboplastin Time 102.2 Seconds (21.0-31.0)
--- NOTE | 2019-12-15 19:47 | Hospitalist Progress Note ---
Date of Service December 15, 2019 Assessment & Plan (1) Perforation of sigmoid colon due to diverticulitis: per Dr. Lorenz's notes: Pt is 49 y/o M with PMH aortic valve replacement with mechanical valve, aortic root repair in 2012 on Coumadin, CAD s/p CABG, HTN, HLD, Crohn's, GERD, depression presented to ER with c/o lower abdominal pain x several days with one episode of vomiting and one soft BM today and chills. In ER pt afebrile, P: 88, R: 20, BP: 115/78, 99% on RA. WBC: 24, H/H: 15/44, B UN: 19, Cr: 1.5, GFR: 53 Blood cultures: Negative Gen surg consulted- no surgery recommended at this time on IV Zosyn, diet advanced to full liquids, IV fluids Clinically improving Advance diet to soft today, continue to monitor (2) Hypokalemia: K: 3.6 -Replace and monitor (3) TANMAY (acute kidney injury): Cr: 1.5, GFR: 53; Baseline Cr: 1.2 with GFR>60 Resolved with IV fluids -Hold lisinopril, HCTZ at this time -Stable -Monitor renal function (4) Hx of aortic valve replacement, mechanical: H/O aortic valve replacement with mechanical valve, aortic root repair in 2011 on Coumadin. Follows with [facility] and out patient records report INR goal 2-3. INR: 1.9 -Start Coumadin with heparin bridge INR goal 2.5-3. (5) CAD (coronary artery disease): S/P CABG in 2012 -Hold aspirin, statin at this time -Continue carvedilol (6) HTN (hypertension): Stable -Continue carvedilol -Hold lisinopril, HCTZ (7) Crohn's disease: No longer on medication treatment. Previously followed with [facility] at [facility] however no longer following (8) GERD (gastroesophageal reflux disease): -Convert po PPI to IV for now DVT Prophylaxis -Coumadin with heparin bridge Full Code as per discussion with pt Follows with Dr Apple for routine care Disposition: Pending Anticipate discharge home medically stable, Plan of care discussed with patient in detail All questions answered He is understanding, agreeable, comfortable plan of care Admission and Anticipated Discharge Date Admission Date: December 10, 2019 Subjective Follow-up for perforated diverticulitis Seen resting in bed, comfortable, not in distress Abdominal pain continues to improve Tolerating full liquid diet well No other symptoms Review of Systems Review of Systems: All systems reviewed & are unremarkable except as noted in HPI & below Physical Exam Physical Exam: General- oriented x 3, not in distress, speaks in sentences with no effort or accessory muscle use Eyes- anicteric Neck- no JVD Lungs- clear breath sounds bilaterally Heart- normal rate, regular rhythm; no murmurs Abdomen- normal bowel sounds, nondistended, soft, nontender Extremities- no pretibial edema, no calf tenderness Neuro- alert, oriented x 3; no gross focal neurologic deficits Skin- warm & dry Results & Data Results & Data ([facility]) Vital Signs (Past 12 Hours) Vital Signs Temp Pulse Pulse Resp BP Pulse Ox 12/15/19 16:00 58 L 12/15/19 15:52 36.8 C 62 20 142/75 H 99 12/15/19 12:00 37.2 C 59 L 18 135/72 99 Laboratory Results Laboratory Results - last 24 hr 12/15/19 12/15/19 12/15/19 07:11 07:11 07:11 WBC 15.05 H RBC 4.32 L Hgb 14.2 Hct 42.1 MCV 97.5 MCH 32.9 MCHC 33.7 RDW Std Deviation 45.2 RDW Coeff of Giovani 12.7 Plt Count 443 H MPV 9.9 Immature Gran % (Auto) 0.4 Neut % (Auto) 73.3 Lymph % (Auto) 19.5 [place] % (Auto) 5.3 Eos % (Auto) 1.2 Baso % (Auto) 0.3 Immature Gran # (Auto) 0.06 H Neut # (Auto) 11.04 H Lymph # (Auto) 2.93 [place] # (Auto) 0.80 H Eos # (Auto) 0.18 Baso # (Auto) 0.04 PT 19.5 H INR 1.9 H APTT PTT Ratio Sodium 145 Potassium 3.7 Chloride 113 H Carbon Dioxide 26 Anion Gap 6.0 BUN 2 L Creatinine 1.16 Est Cr Clr Drug Dosing 99.4 Est GFR ( Amer) 84.6 Est GFR (Non-Af Amer) 73.0 BUN/Creatinine Ratio 1.9 L Glucose 97 Calcium 8.4 L Magnesium 1.9 12/15/19 17:35 WBC RBC Hgb Hct MCV MCH MCHC RDW Std Deviation RDW Coeff of Giovani Plt Count MPV Immature Gran % (Auto) Neut % (Auto) Lymph % (Auto) [place] % (Auto) Eos % (Auto) Baso % (Auto) Immature Gran # (Auto) Neut # (Auto) Lymph # (Auto) [place] # (Auto) Eos # (Auto) Baso # (Auto) PT INR APTT 102.2 H* PTT Ratio 3.7 Sodium Potassium Chloride Carbon Dioxide Anion Gap BUN Creatinine Est Cr Clr Drug Dosing Est GFR ( Amer) Est GFR (Non-Af Amer) BUN/Creatinine Ratio Glucose Calcium Magnesium
[2019-12-16 01:07] LABS: Partial Thromboplastin Ratio 2.5
[2019-12-16 01:09] LABS: Partial Thromboplastin Time 70.5 Seconds (21.0-31.0)
[2019-12-16] MEDS: PIPERACILLIN/TAZOBACTAM 3.375 GM in DEXTROSE 5% 100 ML IV SCH ×3 (01:17→18:48)
[2019-12-16] MEDS: HEPARIN SODIUM/DEXTROSE 25,000 UNITS/500 ML BAG IV SCH (04:59)
[2019-12-16 07:33] LABS: Basophils # (auto) 0.03 K/uL (0-0.2); Basophils % (auto) 0.2 %; Eosinophils # (auto) 0.25 K/uL (0-0.5); Eosinophils % (auto) 1.8 %; Hematocrit (blood only) 38.6 % (42-52); Hemoglobin 12.9 g/dL (14.0-18.0); Immature Granulocytes # (auto) 0.06 K/uL (0.00-0.02); Immature Granulocytes % (auto) 0.4 %; Lymphocytes % (auto) 19.1 %; Mean Corpuscular Hemoglobin 32.1 pg (25-34); Mean Corpuscular Hgb Conc 33.4 g/dL (32-36); Mean Platelet Volume 9.9 fL (7.4-10.4); Monocytes # (auto) 0.88 K/uL (0.11-0.59); Monocytes % (auto) 6.5 %; Neutrophils # (auto) 9.77 K/uL (1.4-6.5); Platelet Count 363 K/uL (130-400); RDW Coefficient of Variation 12.6 % (11.5-14.5); RDW Standard Deviation 43.9 fL (36.4-46.3); Red Blood Count 4.02 M/uL (4.7-6.1); White Blood Count 13.59 K/uL (4.8-10.8)
[2019-12-16 07:42] LABS: INR 1.9 (0.9-1.1); Prothrombin Time 19.4 Seconds (9.0-12.0)
[2019-12-16 07:50] LABS: BUN Creatinine Ratio 1.7 (10-20); Calcium 8.1 mg/dl (8.5-10.1); Creatinine Clr Calc Pharmacy 99.4 ml/min; Est GFR (African American) 84.6; Magnesium 1.7 mg/dl (1.8-2.4); Potassium 3.8 mmol/L (3.5-5.1)
[2019-12-16 07:52] LABS: Partial Thromboplastin Ratio 2.5
[2019-12-16 07:58] LABS: Partial Thromboplastin Time 68.6 Seconds (21.0-31.0)
[2019-12-16] MEDS: PANTOprazole 40 MG in SYRINGE 0 ML IV SCH ×2 (08:17→20:56)
[2019-12-16] MEDS: carvediloL 3.125 MG TAB PO SCH ×2 (08:20→20:58)
--- NOTE | 2019-12-16 11:04 | Surgery Progress Note ---
Date of Service doing better, no abdominal pain, no nausea, no vomiting, no fever, tolerated clear diet, December 16, 2019 Assessment & Plan (1) Perforation of sigmoid colon due to diverticulitis: Perforation of sigmoid colon due to diverticulitis: Slowly improving with decrease in symptoms and decrease in leukocytosis. Advance diet today. continue IV antibiotic repeat labs in morning, will F/U Subjective Pain/ discomfort almost completely resolved. Tolerated diet advancement. Bowels still functioning. Physical Exam Constitutional: WD/WN, vitals as above well developed and well nourished Eyes: PERRL, conjunctivae normal, anicteric sclerae ENMT: external ear and nose normal, oropharynx normal Neck: trachea midline, no thyromegaly Respiratory: normal respiratory effort, lungs clear to auscultation Cardiovascular: RRR, no murmur, no edema Gastrointestinal (Abdomen): normal bowel sounds, soft, nontender, no hepatosplenomegaly Percussion/Palpation: abdomen soft NT, ND, BS + Musculoskeletal: no cyanosis or clubbing, extremities motor strength 5/5 Skin: no rashes, warm and dry Neurologic: awake Psychiatric: Orientation: alert and oriented x 3 Results & Data Vital Signs (Past 12 Hours) Vital Signs Temp Pulse Pulse Pulse Resp BP Pulse Ox 12/16/19 08:15 65 12/16/19 08:00 52 L 12/16/19 07:28 36.4 C L 55 L 19 155/79 H 98 12/16/19 04:10 36.9 C 55 L 20 139/70 98 12/16/19 00:00 59 L 12/15/19 23:56 36.8 C 55 L 20 151/81 H 97 Laboratory Results Abnormal lab results 12/15/19 12/16/19 12/16/19 Range/Units 17:35 00:29 07:21 WBC (4.8-10.8) K/uL RBC (4.7-6.1) M/uL Hgb (14.0-18.0) g/dL Hct (42-52) % Immature Gran # (Auto) (0.00-0.02) K/uL Neut # (Auto) (1.4-6.5) K/uL [place] # (Auto) (0.11-0.59) K/uL PT 19.4 H (9.0-12.0) Seconds INR 1.9 H (0.9-1.1) APTT 102.2 H* 70.5 H* (21.0-31.0) Seconds Chloride (98-107) mmol/L BUN (7-18) mg/dl BUN/Creatinine Ratio (10-20) Calcium (8.5-10.1) mg/dl Magnesium (1.8-2.4) mg/dl 12/16/19 12/16/19 12/16/19 Range/Units 07:21 07:21 07:21 WBC 13.59 H (4.8-10.8) K/uL RBC 4.02 L (4.7-6.1) M/uL Hgb 12.9 L (14.0-18.0) g/dL Hct 38.6 L (42-52) % Immature Gran # (Auto) 0.06 H (0.00-0.02) K/uL Neut # (Auto) 9.77 H (1.4-6.5) K/uL [place] # (Auto) 0.88 H (0.11-0.59) K/uL PT (9.0-12.0) Seconds INR (0.9-1.1) APTT 68.6 H* (21.0-31.0) Seconds Chloride 113 H (98-107) mmol/L BUN 2 L (7-18) mg/dl BUN/Creatinine Ratio 1.7 L (10-20) Calcium 8.1 L (8.5-10.1) mg/dl Magnesium 1.7 L (1.8-2.4) mg/dl
[2019-12-16] MEDS: D5NSS + 20MEQ KCL 20 MEQ/1,000 ML BAG IV SCH (11:07)
[2019-12-16 14:47] LABS: Partial Thromboplastin Time 57.1 Seconds (21.0-31.0)
[2019-12-16] MEDS ORDERED: WARFARIN SOD 4 MG TAB PO ONE (16:00)
[2019-12-16] MEDS: WARFARIN SOD 4 MG TAB PO SCH (16:06)
--- NOTE | 2019-12-16 19:50 | Hospitalist Progress Note ---
Date of Service December 16, 2019 Assessment & Plan (1) Perforation of sigmoid colon due to diverticulitis: per Dr. Lorenz's notes: Pt is 49 y/o M with PMH aortic valve replacement with mechanical valve, aortic root repair in 2012 on Coumadin, CAD s/p CABG, HTN, HLD, Crohn's, GERD, depression presented to ER with c/o lower abdominal pain x several days with one episode of vomiting and one soft BM today and chills. In ER pt afebrile, P: 88, R: 20, BP: 115/78, 99% on RA. WBC: 24, H/H: 15/44, B UN: 19, Cr: 1.5, GFR: 53 Blood cultures: Negative Gen surg consulted- no surgery recommended at this time on IV Zosyn, diet advanced to soft diet, tolerating well, continue IV fluids Clinically improving (2) Hypokalemia: K: 3.6 -Replace and monitor (3) TANMAY (acute kidney injury): Cr: 1.5, GFR: 53; Baseline Cr: 1.2 with GFR>60 Resolved with IV fluids -Resume lisinopril, hold HCTZ at this time -Stable -Monitor renal function (4) Hx of aortic valve replacement, mechanical: H/O aortic valve replacement with mechanical valve, aortic root repair in 2012 on Coumadin. Follows with [facility] and out patient records report INR goal 2-3. INR: 1.9 INR goal 2-3 Continue Coumadin with heparin bridge Monitor INR (5) CAD (coronary artery disease): S/P CABG in 2012 -Hold aspirin, statin at this time -Continue carvedilol (6) HTN (hypertension): Stable -Continue carvedilol -Resume lisinopril, hold HCTZ (7) Crohn's disease: No longer on medication treatment. Previously followed with [facility] at [facility] however no longer following (8) GERD (gastroesophageal reflux disease): -Convert po PPI to IV for now DVT Prophylaxis -Coumadin with heparin bridge Full Code as per discussion with pt Follows with Dr Apple for routine care Disposition: Pending Anticipate discharge home medically stable, Plan of care discussed with patient in detail All questions answered He is understanding, agreeable, comfortable plan of care Admission and Anticipated Discharge Date Admission Date: December 10, 2019 Subjective Follow-up for further diverticulitis Seen resting in bed, comfortable, not in distress States he continues to feel improved daily Tolerating soft diet well Denies pain with bowel movement today No hematochezia or melena No other symptoms Review of Systems Review of Systems: All systems reviewed & are unremarkable except as noted in HPI & below Physical Exam Physical Exam: General- oriented x 3, not in distress, speaks in sentences with no effort or accessory muscle use Eyes- anicteric Neck- no JVD Lungs- clear breath sounds bilaterally, no crackles or wheezing Heart- normal rate, regular rhythm; no murmurs Abdomen- normal bowel sounds, nondistended, soft, nontender Extremities- no pretibial edema, no calf tenderness Neuro- alert, oriented x 3; no gross focal neurologic deficits Skin- warm & dry Results & Data Results & Data ([facility]) Vital Signs (Past 12 Hours) Vital Signs Temp Pulse Pulse Pulse Resp BP Pulse Ox 12/16/19 15:56 36.5 C 57 L 18 148/65 H 98 12/16/19 11:54 37.0 C 57 L 20 133/57 L 98 12/16/19 08:15 65 12/16/19 08:00 52 L
[2019-12-17] MEDS: HEPARIN SODIUM/DEXTROSE 25,000 UNITS/500 ML BAG IV SCH ×3 (00:01→20:24)
[2019-12-17] MEDS: PIPERACILLIN/TAZOBACTAM 3.375 GM in DEXTROSE 5% 100 ML IV SCH ×2 (02:10→11:32)
[2019-12-17] MEDS: D5NSS + 20MEQ KCL 20 MEQ/1,000 ML BAG IV SCH (02:12)
[2019-12-17 07:30] LABS: Basophils # (auto) 0.03 K/uL (0-0.2); Basophils % (auto) 0.2 %; Eosinophils # (auto) 0.24 K/uL (0-0.5); Eosinophils % (auto) 1.8 %; Hematocrit (blood only) 36.2 % (42-52); Hemoglobin 12.6 g/dL (14.0-18.0); Immature Granulocytes # (auto) 0.07 K/uL (0.00-0.02); Immature Granulocytes % (auto) 0.5 %; Lymphocytes # (auto) 2.59 K/uL (1.2-3.4); Lymphocytes % (auto) 19.9 %; Mean Corpuscular Hemoglobin 33.5 pg (25-34); Mean Corpuscular Hgb Conc 34.8 g/dL (32-36); Mean Corpuscular Volume 96.3 fL (80-100); Mean Platelet Volume 10.2 fL (7.4-10.4); Monocytes # (auto) 0.72 K/uL (0.11-0.59); Monocytes % (auto) 5.5 %; Neutrophils # (auto) 9.36 K/uL (1.4-6.5); Neutrophils % (auto) 72.1 %; Platelet Count 348 K/uL (130-400); RDW Coefficient of Variation 12.7 % (11.5-14.5); RDW Standard Deviation 44.3 fL (36.4-46.3); Red Blood Count 3.76 M/uL (4.7-6.1); White Blood Count 13.01 K/uL (4.8-10.8)
[2019-12-17 07:52] LABS: INR 1.9 (0.9-1.1); Partial Thromboplastin Ratio 2.4; Prothrombin Time 19.7 Seconds (9.0-12.0)
[2019-12-17 07:55] LABS: Partial Thromboplastin Time 66.1 Seconds (21.0-31.0)
[2019-12-17 07:56] LABS: BUN Creatinine Ratio 3.6 (10-20); Calcium 8.4 mg/dl (8.5-10.1); Est GFR (African American) 86.4; Est GFR (Non-African American) 74.6; Potassium 3.8 mmol/L (3.5-5.1)
--- NOTE | 2019-12-17 08:04 | Surgery Progress Note ---
Date of Service December 17, 2019 Assessment & Plan (1) Perforation of sigmoid colon due to diverticulitis: doing well- wbc normalizing rossi diet arc cutter- low residue diet at home ok for d/c home from surg standpoint- on Augmentin 2 weeks will f/u office and re CT at some point- ? 1-2 weeks Subjective no acute chgs Physical Exam Physical Exam: vitals stable Constitutional: well developed; no acute distress Respiratory: normal respiratory effort; no respiratory distress Cardiovascular: Rate/Rhythm: regular rhythm Skin: no rashes, warm and dry Neurologic: awake Psychiatric: Orientation: alert Results & Data Vital Signs (Past 12 Hours) Vital Signs Temp Pulse Pulse Pulse Resp BP BP 12/17/19 07:35 36.6 C 56 L 20 156/84 H 12/17/19 07:23 53 L 12/17/19 05:22 158/74 H 12/17/19 04:15 36.8 C 56 L 18 174/81 H 12/17/19 01:22 61 12/16/19 23:30 36.3 C L 56 L 18 134/68 12/16/19 20:57 60 182/82 H Pulse Ox 12/17/19 07:35 94 12/17/19 07:23 12/17/19 05:22 12/17/19 04:15 98 12/17/19 01:22 12/16/19 23:30 99 12/16/19 20:57 PG Care Time/CCT Total # of Minutes Spent Total Time Spent with Patient: Total time spent is greater than 50% in coordination of care (as documented) at patient's floor/unit and/or counseling patient: Coding Level of Care Code 55449 Inpt Consult Level 3 Diagnoses Perforation of sigmoid colon due to diverticulitis K57.20
[2019-12-17] MEDS: lisinopriL 40 MG TAB PO SCH (08:25)
[2019-12-17] MEDS: carvediloL 3.125 MG TAB PO SCH ×2 (08:25→20:12)
[2019-12-17] MEDS: PANTOprazole 40 MG in SYRINGE 0 ML IV SCH (08:26)
[2019-12-17] MEDS: WARFARIN SOD 4 MG TAB PO SCH (15:55)
[2019-12-17] MEDS ORDERED: WARFARIN SOD 4 MG TAB PO ONE (16:00)
[2019-12-17] MEDS: AMOXICILLIN/CLAVULANATE 875 MG TAB PO SCH (17:58)
[2019-12-17] MEDS: PANTOprazole 40 MG TAB PO SCH (20:12)
--- NOTE | 2019-12-18 06:03 | Hospitalist Progress Note ---
Date of Service delayed entry date of service 12/17/19 December 18, 2019 Assessment & Plan (1) Perforation of sigmoid colon due to diverticulitis: per Dr. Lorenz's notes: Pt is 49 y/o M with PMH aortic valve replacement with mechanical valve, aortic root repair in 2011 on Coumadin, CAD s/p CABG, HTN, HLD, Crohn's, GERD, depression presented to ER with c/o lower abdominal pain x several days with one episode of vomiting and one soft BM today and chills. In ER pt afebrile, P: 88, R: 20, BP: 115/78, 99% on RA. WBC: 24, H/H: 15/44, BUN: 19, Cr: 1.5, GFR: 53 Blood cultures: Negative Gen surg consulted- no surgery recommended at this time placed on IV Zosyn, diet advanced to soft diet, tolerating well clinically improved transitioned to Augmentin BID to complete x 2 weeks ff up with Gen Surg in 2 weeks low fiber diet (2) Hypokalemia: K: 3.6 -Replace and monitor (3) TANMAY (acute kidney injury): Cr: 1.5, GFR: 53; Baseline Cr: 1.2 with GFR>60 Resolved with IV fluids -Resume lisinopril, hold HCTZ at this time -Stable (4) Hx of aortic valve replacement, mechanical: H/O aortic valve replacement with mechanical valve, aortic root repair in 2011 on Coumadin. Follows with [facility] and out patient records report INR goal 2-3. INR: 1.9 INR goal 2-3 per coumadin clinic Continue Coumadin with heparin bridge Monitor INR ff up with coumadin clinic 1-2 days post discharge (5) CAD (coronary artery disease): S/P CABG in 2012 -Held aspirin, statin -Continue carvedilol (6) HTN (hypertension): Stable -Continue carvedilol -Resume lisinopril, hold HCTZ (7) Crohn's disease: No longer on medication treatment. Previously followed with [facility] however no longer following (8) GERD (gastroesophageal reflux disease): -Convert po PPI to IV for now DVT Prophylaxis -Coumadin with heparin bridge Full Code as per discussion with pt Follows with Dr Apple for routine care Disposition: Pending Anticipate discharge home when INR therapeutic ff up with coumadin clinic 1-2 days after d/c Plan of care discussed with patient in detail All questions answered He is understanding, agreeable, comfortable plan of care Admission and Anticipated Discharge Date Admission Date: December 10, 2019 Subjective ff up for perforated diverticulitis seen resting in bed, comfortable tolerating diet well no abdominal pain (+) BMs, non bloody no other symptoms Review of Systems Review of Systems: All systems reviewed & are unremarkable except as noted in HPI & below Physical Exam Physical Exam: General- oriented x 3, not in distress, speaks in sentences with no effort or accessory muscle use Eyes- anicteric Neck- no JVD Lungs- clear BS BL Heart- normal rate, regular rhythm; no murmurs Abdomen- normal bowel sounds, nondistended, soft, NO tenderness Extremities- no pretibial edema, no calf tenderness Neuro- alert, oriented x 3; no gross focal neurologic deficits Skin- warm & dry Results & Data Results & Data ([facility]) Vital Signs (Past 12 Hours) Vital Signs Temp Pulse Pulse Resp BP Pulse Ox 12/18/19 03:59 36.7 C 60 18 123/63 99 12/17/19 23:45 36.7 C 54 L 20 180/82 H 98 12/17/19 20:25 37.0 C 61 20 178/83 H 98 12/17/19 19:29 60 Laboratory Results all noted and reviewed
[2019-12-18 07:09] LABS: INR 1.9 (0.9-1.1); Prothrombin Time 19.8 Seconds (9.0-12.0)
[2019-12-18] MEDS: PANTOprazole 40 MG TAB PO SCH ×2 (07:31→20:54)
[2019-12-18] MEDS: AMOXICILLIN/CLAVULANATE 875 MG TAB PO SCH ×2 (07:32→17:30)
[2019-12-18] MEDS: lisinopriL 40 MG TAB PO SCH (07:32)
[2019-12-18] MEDS: carvediloL 3.125 MG TAB PO SCH ×2 (07:32→20:54)
[2019-12-18 08:28] LABS: Partial Thromboplastin Ratio 1.9; Partial Thromboplastin Time 52.7 Seconds (21.0-31.0)
--- NOTE | 2019-12-18 09:24 | Surgery Progress Note ---
Date of Service December 18, 2019 Assessment & Plan (1) Perforation of sigmoid colon due to diverticulitis: Patient denies any abdominal symptoms & has a benign examination Tolerating a diet & having bowel function Afebrile Pt is eager to get home From our standpoint pt is stable for discharge to home on a course of augmentin for 2 weeks Will ask pt follow up in clinic within 1-2 weeks w a repeat CT scan Subjective Patient tolerating a regular diet. Denies any abdominal pain, nausea/vomiting. Is passing flatus and having bowel movements. Is frustrated, because he is ready to go home. Physical Exam Physical Exam: awake/alert Constitutional: well developed and well nourished appears tearful and frustrated Gastrointestinal (Abdomen): Inspection/Auscultation: abdomen not distended Percussion/Palpation: abdomen soft; abdomen nontender Results & Data Vital Signs (Past 12 Hours) Vital Signs Temp Pulse Pulse Resp BP Pulse Ox 12/18/19 07:42 36.7 C 63 20 152/81 H 96 12/18/19 06:09 68 12/18/19 03:59 36.7 C 60 18 123/63 99 12/17/19 23:45 36.7 C 54 L 20 180/82 H 98 PG Care Time/CCT Total # of Minutes Spent Total Time Spent with Patient: Total time spent is greater than 50% in coordination of care (as documented) at patient's floor/unit and/or counseling patient: Coding Level of Care Code 06039 Subseq Hosp Care Lvl 1 Diagnoses Perforation of sigmoid colon due to diverticulitis K57.20
[2019-12-18] MEDS: HEPARIN SODIUM/DEXTROSE 25,000 UNITS/500 ML BAG IV SCH (15:33)
[2019-12-18] MEDS ORDERED: WARFARIN SOD 5 MG TAB PO SCH (16:00)
--- NOTE | 2019-12-18 18:21 | Hospitalist Progress Note ---
Date of Service December 18, 2019 Assessment & Plan (1) Perforation of sigmoid colon due to diverticulitis: -Pt is 49 y/o M with PMH aortic valve replacement with mechanical valve, aortic root repair in 2011 on Coumadin, CAD s/p CABG, HTN, HLD, Crohn's, GERD, depression presented to ER with lower abdominal pain, vomiting, and chills. In ER pt afebrile, P: 88, R: 20, BP: 115/78, 99% on RA. WBC: 24, H/H: 15/44, BUN: 19, Cr: 1.5, GFR: 53 -Blood cultures: Negative -Gen surgery was consulted and recommended conservative management; was placed on IV Zosyn, diet advanced. then clinically improved and transitioned to Augmentin BID to complete x 2 weeks and outpatient general surgery follow up re commended. continuelow fiber diet (2) Hypokalemia: generally resolved (3) TANMAY (acute kidney injury): generally resolved -continue lisinopril, Resume lisinopril, hold HCTZ at this time (4) Hx of aortic valve replacement, mechanical: H/O aortic valve replacement with mechanical valve, aortic root repair in 2011 on Coumadin. Follows with [facility] and out patient records report INR goal 2-3. 12/18/2019 updatesPatient doing well. denies abdominal pain. no chest pain. no shortness of breath. no headache. denies problems with bowel movements. however while on IV heparin and coumadin, INR remains as 1.9. Received increased dose of coumadin as 5 mg daily for now with IV heparin. remains inpatient at this time. patient agreeable to this plan (5) CAD (coronary artery disease): S/P CABG in 2011 -Continue carvedilol -holding aspirin for now, hold ezetimibe (6) HTN (hypertension): -Continue carvedilol -continue lisinopril, Resume lisinopril, hold HCTZ at this time (7) Crohn's disease: No longer on medication treatment. Previously followed with [facility] at [facility] however no longer following, he reports he plans to continue follow up with [facility] gastroenterology after hospital stay (8) GERD (gastroesophageal reflux disease): -on protonics DVT Prophylaxis -Coumadin with heparin bridge 12/18/2019 updates: Patient doing well. denies abdominal pain. no chest pain. no shortness of breath. no headache. denies problems with bowel movements. however while on IV heparin and coumadin, INR remains as 1.9. Received increased dose of coumadin as 5 mg daily for now with IV heparin. remains inpatient at this time. patient agreeable to this plan Full Code as per discussion with pt Follows with Dr Apple for routine care Admission and Anticipated Discharge Date Admission Date: December 10, 2019 Subjective Patient doing well. denies abdominal pain. no chest pain. no shortness of breath. no headache. denies problems with bowel movements. however while on IV heparin and coumadin, INR remains as 1.9. Received increased dose of coumadin as 5 mg daily for now with IV heparin. remains inpatient at this time. patient agreeable to this plan. Review of Systems Review of Systems: All systems reviewed & are unremarkable except as noted in Subjective Physical Exam Constitutional: WD/WN, vitals as above Eyes: PERRL, conjunctivae normal, anicteric sclerae EOM intact bilaterally ENMT: external ear and nose normal, oropharynx normal Neck: normal visual inspection Respiratory: normal respiratory effort, lungs clear to auscultation Cardiovascular: Rate/Rhythm: + bradycardic Gastrointestinal (Abdomen): normal bowel sounds, soft, nontender, no hepatosplenomegaly Musculoskeletal: Head/Neck/Chest: normocephalic and head atraumatic Neurologic: PERRL, EOMI, accommodation nl, no face palsy, no dysarthria CN's II-XI intact bilaterally Psychiatric: A+Ox3, euthymic affect Results & Data Results & Data ([facility]) Vital Signs (Past 12 Hours) Vital Signs Temp Pulse Pulse Resp BP Pulse Ox 12/18/19 15:04 36.6 C 61 19 153/82 H 95 12/18/19 14:20 64 12/18/19 11:47 36.8 C 57 L 20 167/83 H 99 12/18/19 07:42 36.7 C 63 20 152/81 H 96
[2019-12-19 05:17] LABS: Basophils # (auto) 0.03 K/uL (0-0.2); Basophils % (auto) 0.2 %; Eosinophils # (auto) 0.27 K/uL (0-0.5); Eosinophils % (auto) 2.2 %; Hematocrit (blood only) 40.8 % (42-52); Hemoglobin 13.6 g/dL (14.0-18.0); Immature Granulocytes # (auto) 0.08 K/uL (0.00-0.02); Immature Granulocytes % (auto) 0.7 %; Lymphocytes # (auto) 2.62 K/uL (1.2-3.4); Lymphocytes % (auto) 21.8 %; Mean Corpuscular Hemoglobin 32.1 pg (25-34); Mean Corpuscular Hgb Conc 33.3 g/dL (32-36); Mean Corpuscular Volume 96.2 fL (80-100); Monocytes # (auto) 0.81 K/uL (0.11-0.59); Monocytes % (auto) 6.7 %; Neutrophils # (auto) 8.22 K/uL (1.4-6.5); Neutrophils % (auto) 68.4 %; Platelet Count 377 K/uL (130-400); RDW Coefficient of Variation 12.9 % (11.5-14.5); RDW Standard Deviation 45.2 fL (36.4-46.3); Red Blood Count 4.24 M/uL (4.7-6.1); White Blood Count 12.03 K/uL (4.8-10.8)
[2019-12-19 05:37] LABS: INR 1.9 (0.9-1.1); Partial Thromboplastin Ratio 2.3; Prothrombin Time 19.3 Seconds (9.0-12.0)
[2019-12-19 05:39] LABS: Partial Thromboplastin Time 64.4 Seconds (21.0-31.0)
[2019-12-19 05:54] LABS: BUN Creatinine Ratio 7.9 (10-20); Calcium 8.7 mg/dl (8.5-10.1); Creatinine Clr Calc Pharmacy 90.8 ml/min; Est GFR (African American) 77.3; Est GFR (Non-African American) 66.7; Magnesium 1.9 mg/dl (1.8-2.4); Potassium 4.2 mmol/L (3.5-5.1)
[2019-12-19] MEDS: AMOXICILLIN/CLAVULANATE 875 MG TAB PO SCH ×2 (08:10→16:20)
[2019-12-19] MEDS: carvediloL 3.125 MG TAB PO SCH ×2 (08:10→20:12)
[2019-12-19] MEDS: PANTOprazole 40 MG TAB PO SCH ×2 (08:11→20:13)
[2019-12-19] MEDS: lisinopriL 40 MG TAB PO SCH (08:11)
[2019-12-19] MEDS ORDERED: MAGNESIUM SULFATE / D5W 1 GM/100 ML BAG IV ONE (09:00)
[2019-12-19] MEDS: MAGNESIUM OXIDE 400 MG TAB PO SCH (09:38)
--- NOTE | 2019-12-19 10:40 | Hospitalist Progress Note ---
Date of Service December 19, 2019 Assessment & Plan (1) Perforation of sigmoid colon due to diverticulitis: -Pt is 49 y/o M with PMH aortic valve replacement with mechanical valve, aortic root repair in 2011 on Coumadin, CAD s/p CABG, HTN, HLD, Crohn's, GERD, depression presented to ER with lower abdominal pain, vomiting, and chills. In ER pt afebrile, P: 88, R: 20, BP: 115/78, 99% on RA. WBC: 24, H/H: 15/44, BUN: 19, Cr: 1.5, GFR: 53 -Blood cultures: Negative -Gen surgery was consulted and recommended conservative management; was placed on IV Zosyn, diet advanced. then clinically improved and transitioned to Augmentin BID to complete x 2 weeks and outpatient general surgery follow up re commended. continue low fiber diet (2) Hypokalemia: generally resolved (3) TANMAY (acute kidney injury): generally resolved -continue lisinopril, Resume lisinopril, hold HCTZ at this time (4) Hx of aortic valve replacement, mechanical: H/O aortic valve replacement with mechanical valve, aortic root repair in 2011 on Coumadin. Follows with [facility] and out patient records report INR goal 2-3. 12/18/2019 updates: Patient doing well. denies abdominal pain. no chest pain. no shortness of breath. no headache. denies problems with bowel movements. however while on IV heparin and coumadin, INR remains as 1.9. Received increased dose of coumadin as 5 mg for now with IV heparin 12/19/2019 updates: Patient on IV heparin drip. INR remains as 1.9. Patient is upset of remaining in hospital on IV heparin drip. He would like coumadin dosing today to be increased to 8 mg while on IV heparin and he reports regardless of INR tomorrow he will wish to go (5) CAD (coronary artery disease): S/P CABG in 2011 -Continue carvedilol -holding aspirin for now, hold ezetimibe (6) HTN (hypertension): -Continue carvedilol -continue lisinopril, Resume lisinopril, hold HCTZ at this time (7) Crohn's disease: No longer on medication treatment. Previously followed with [facility] at [facility] however no longer following, he reports he plans to continue follow up with [facility] gastroenterology after hospital stay (8) GERD (gastroesophageal reflux disease): -on protonics DVT Prophylaxis -Coumadin with heparin bridge Full Code as per discussion with pt Follows with Dr Apple for routine care Admission and Anticipated Discharge Date Admission Date: December 10, 2019 Subjective Patient on IV heparin drip. INR remains as 1.9. Patient is upset of remaining in hospital on IV heparin drip. He would like coumadin dosing today to be increased to 8 mg while on IV heparin and he reports regardless of INR tomorrow he will wish to go no chest pain. no abdomen pain. no shortness of breath. no headache. no dizziness. no vomiting. no changes in bowel movements or with urination Review of Systems Review of Systems: All systems reviewed & are unremarkable except as noted in Subjective Physical Exam Constitutional: WD/WN, vitals as above Eyes: PERRL, conjunctivae normal, anicteric sclerae EOM intact bilaterally ENMT: external ear and nose normal, oropharynx normal Neck: normal visual inspection Respiratory: normal respiratory effort, lungs clear to auscultation Cardiovascular: Rate/Rhythm: regular rhythm Gastrointestinal (Abdomen): normal bowel sounds, soft, nontender, no hepatosplenomegaly Musculoskeletal: Head/Neck/Chest: normocephalic and head atraumatic Neurologic: PERRL, EOMI, accommodation nl, no face palsy, no dysarthria CN's II-XI intact bilaterally Psychiatric: A+Ox3, euthymic affect Results & Data Results & Data ([facility]) Vital Signs (Past 12 Hours) Vital Signs Temp Pulse Pulse Resp BP Pulse Ox 12/19/19 08:10 72 12/19/19 07:28 58 L 12/19/19 07:13 36.9 C 62 16 129/82 98 12/19/19 04:15 36.4 C L 61 18 126/72 93 12/18/19 23:42 36.9 C 62 20 152/82 H 95 12/18/19 23:00 57 L
[2019-12-19] MEDS: HEPARIN SODIUM/DEXTROSE 25,000 UNITS/500 ML BAG IV SCH (11:19)
[2019-12-19] MEDS ORDERED: WARFARIN SOD 6 MG TAB PO SCH (16:00)
[2019-12-19] MEDS ORDERED: WARFARIN SOD 4 MG TAB PO SCH (16:00)
[2019-12-19] MEDS: hydroCHLOROthiazide 25 MG TAB PO SCH (20:13)
[2019-12-20] MEDS: HEPARIN SODIUM/DEXTROSE 25,000 UNITS/500 ML BAG IV SCH (06:57)
[2019-12-20] MEDS: AMOXICILLIN/CLAVULANATE 875 MG TAB PO SCH (07:50)
[2019-12-20] MEDS: carvediloL 3.125 MG TAB PO SCH (07:50)
[2019-12-20] MEDS: lisinopriL 40 MG TAB PO SCH (07:50)
[2019-12-20] MEDS: hydroCHLOROthiazide 25 MG TAB PO SCH (07:50)
[2019-12-20] MEDS: PANTOprazole 40 MG TAB PO SCH (07:50)
[2019-12-20] MEDS: MAGNESIUM OXIDE 400 MG TAB PO SCH (07:50)
[2019-12-20 08:38] LABS: INR 2.6 (0.9-1.1); Partial Thromboplastin Ratio 2.3; Prothrombin Time 25.9 Seconds (9.0-12.0)
[2019-12-20 08:39] LABS: Partial Thromboplastin Time 63.4 Seconds (21.0-31.0)
--- NOTE | 2019-12-20 09:23 | Hospitalist Progress Note ---
Date of Service December 20, 2019 Assessment & Plan (1) Perforation of sigmoid colon due to diverticulitis: Crohns Disease with other complication of Perforated acute sigmoid diverticulitis and Pelvic Abscess (stable) -Pt is 49 y/o M with PMH aortic valve replacement with mechanical valve, aortic root repair in 2011 on Coumadin, CAD s/p CABG, HTN, HLD, Crohn's, GERD, depression presented to ER with lower abdominal pain, vomiting, and chills. In ER pt afebrile, P: 88, R: 20, BP: 115/78, 99% on RA. WBC: 24, H/H: 15/44, BUN: 19, Cr: 1.5, GFR: 53 -Blood cultures: Negative -Gen surgery was consulted and recommended conservative management; was placed on IV Zosyn, diet advanced. then clinically improved and transitioned to Augmentin BID to complete x 2 weeks and outpatient general surgery follow up recommended. continue low fiber diet (2) Hypokalemia: generally resolved (3) TANMAY (acute kidney injury): resolved -continue lisinopril, Resume lisinopril, hold HCTZ at this time (4) Hx of aortic valve replacement, mechanical: Aortic valve replacement with mechanical valve -H/O aortic valve replacement with mechanical valve, aortic root repair in 2011 on Coumadin. Follows with [facility] and out patient records report INR goal 2-3. -12/18/2019 updates: Patient doing well. denies abdominal pain. no chest pain. no shortness of breath. no headache. denies problems with bowel movements. however while on IV heparin and coumadin, INR remains as 1.9. Received increased dose of coumadin as 5 mg for now with IV heparin -12/19/2019 updates: Patient on IV heparin drip. INR remains as 1.9. Patient is upset of remaining in hospital on IV heparin drip. He would like coumadin dosing today to be increased to 8 mg while on IV heparin and he reports regardless of INR tomorrow he will wish to go -12/20/2019: INR is 2.6 and IV heparin stopped last day of antibiotics of Augmentin twice a day medication to end on December 24, 2019 which completes a total 2 week course of antibiotics also discharge medication of pantoprazole home dose carvedilol from 25 mg twice day to be 3.125 mg twice a day on discharge based on hospital monitoring of heart rates and blood pressures medications sent electronically to pharmacy [facility] at [address] [place] [phone] Patient was primarily followed by Dr. Zoltan Camacho of [facility] General Surgery service while patient was under hospitalization care of [facility] affiliated hospitalist team at [facility] because of Perforated acute sigmoid diverticulitis and pelvic abscess which was managed nonoperatively (patient is recommended to follow up with General Surgery clinic in 2 weeks and patient should call to confirm that he has a scheduled appointment [facility] [address] [place] [address], [place] [address] Monday through , from 8:00 am to 5:00 pm) Patient should have regular labs drawn as outpatient to check INR levels while on coumadin 4 mg daily on discharge Follow up appointments 12/23/2019 11:20 AM Provider Francisco Apple DO Department Family Practice [facility] 12/31/2019 1:50 PM Provider [facility] [place] [facility], [place] 01/07/2020 1:40 PM Provider Jareth Rdz MD Department Gastroenterology, [facility] for management of Crohn's Disease (5) CAD (coronary artery disease): S/P CABG in 2011 -Continue carvedilol as 3.125 mg BID -holding aspirin for now, hold ezetimibe (6) HTN (hypertension): -Continue carvedilol -continue lisinopril, continue HCTZ (7) Crohn's disease: No longer on medication treatment. Previously followed with [facility] GI at [facility] however no longer following, he reports he plans to continue follow up with [facility] gastroenterology after hospital stay (8) GERD (gastroesophageal reflux disease): -on protonics DVT Prophylaxis -therapeutic INR Admission and Anticipated Discharge Date Admission Date: December 10, 2019 Subjective INR is 2.6 and IV heparin stopped. discharge plans discussed at length. no abdomen pain. no vomiting. ambulatory. no dizziness. no headache. no shortness of breath. Review of Systems Review of Systems: All systems reviewed & are unremarkable except as noted in Subjective Physical Exam Constitutional: WD/WN, vitals as above Eyes: PERRL, conjunctivae normal, anicteric sclerae EOM intact bilaterally ENMT: external ear and nose normal, oropharynx normal Neck: normal visual inspection Respiratory: normal respiratory effort, lungs clear to auscultation Cardiovascular: Rate/Rhythm: regular rhythm Gastrointestinal (Abdomen): normal bowel sounds, soft, nontender, no hepatosplenomegaly Musculoskeletal: Head/Neck/Chest: normocephalic and head atraumatic Neurologic: PERRL, EOMI, accommodation nl, no face palsy, no dysarthria CN's II-XI intact bilaterally Psychiatric: A+Ox3, euthymic affect Results & Data Results & Data ([facility]) Vital Signs (Past 12 Hours) Vital Signs Temp Pulse Pulse Resp BP Pulse Ox 12/20/19 08:40 65 12/20/19 07:12 36.6 C 60 18 121/71 96 12/20/19 04:14 36.9 C 60 18 119/55 L 97 12/20/19 00:00 68 12/19/19 23:11 36.7 C 62 16 122/62 96
[2019-12-20] MEDS ORDERED: WARFARIN SOD 4 MG TAB PO SCH (16:00)
--- NOTE | 2019-12-21 13:45 | Discharge Summary ---
Date of Service December 20, 2019 Admission HPI Per Admitting Provider Pt is 49 y/o M with PMH aortic valve replacement with mechanical valve, aortic root repair in 2012 on Coumadin, CAD s/p CABG, HTN, HLD, Crohn's, GERD, depression presented to ER with c/o abdominal pain x several days. Pt states several days ago had some abdominal cramping and decreased urination and was not eating or drinking much. He then started feeling some improvement and was able to eat a little a couple of days ago. Pt states yesterday started with lower abdominal pain radiating to scrotum. Reports vomited once this morning approx 45-60 minutes after taking his pills. Reports soft BM this am. He states felt chilled, did not take his temperature. Pt not currently taking any medications for his Crohn's. Previously was on sulfasalazine and pt states was unable to tolerate steroids. He reports disagreement with Dr Mc with [facility] and stopped follow up. He has instead been using cannibis and hemp to treat his symptoms. He reports he is no longer taking duloxetine for depression. Denies diaphoresis, hematemesis, melena, hematochezia, GERONIMO, dizziness, syncope, vision changes, neck pain, CP, SOB, orthopnea, palpitations, cough, sore throat, choking, otalgia, rhinorrhea, scrotal edema or discoloration, penile pain or discharge, paresthesias, weakness, extremity weakness, edema, rashes, dysuria, hematuria, back pain. Principal Diagnosis Crohns Disease with other complication of Perforated acute sigmoid diverticulitis and Pelvic Abscess (stable) Aortic valve replacement with mechanical valve On chronic systemic anticoagulation with Coumadin Acute Kidney Injury (resolved) Hypertension Discharge Exam Constitutional WD/WN, vitals as above Eyes PERRL, conjunctivae normal, anicteric sclerae EOM intact bilaterally ENMT external ear and nose normal, oropharynx normal Neck normal visual inspection Respiratory normal respiratory effort, lungs clear to auscultation Cardiovascular Rate/Rhythm: regular rhythm Gastrointestinal (Abdomen) normal bowel sounds, soft, nontender, no hepatosplenomegaly Musculoskeletal Head/Neck/Chest: normocephalic and head atraumatic Neurologic PERRL, EOMI, accommodation nl, no face palsy, no dysarthria CN's II-XI intact bilaterally Psychiatric A+Ox3, euthymic affect Discharge Data Allergies Allergy/AdvReac Type Severity Reaction Status Date / Time No Known Allergies Allergy Unverified 12/10/19 12:05 Consultations 12/10/19 13:20 ED Decision to Admit Stat 12/10/19 13:21 Consult General Surgery Routine 12/10/19 13:33 Consult Gastroenterology Routine 12/11/19 07:01 Consult Infectious Diseases Routine Ordered Studies 12/10/19 10:50 CT abd pelvis IV con only Stat Hospital Course (1) Perforation of sigmoid colon due to diverticulitis: Crohns Disease with other complication of Perforated acute sigmoid diverticulitis and Pelvic Abscess (stable) -Pt is 49 y/o M with PMH aortic valve replacement with mechanical valve, aortic root repair in 2011 on Coumadin, CAD s/p CABG, HTN, HLD, Crohn's, GERD, depression presented to ER with lower abdominal pain, vomiting, and chills. In ER pt afebrile, P: 88, R: 20, BP: 115/78, 99% on RA. WBC: 24, H/H: 15/44, BUN: 19, Cr: 1.5, GFR: 53 -Blood cultures: Negative -Gen surgery was consulted and recommended conservative management; was placed on IV Zosyn, diet advanced. then clinically improved and transitioned to Augmentin BID to complete x 2 weeks and outpatient general surgery follow up recommended. continue low fiber diet (2) Hypokalemia: generally resolved (3) TANMAY (acute kidney injury): resolved -continue lisinopril, Resume lisinopril, hold HCTZ at this time (4) Hx of aortic valve replacement, mechanical: Aortic valve replacement with mechanical valve -H/O aortic valve replacement with mechanical valve, aortic root repair in 2011 on Coumadin. Follows with [facility] and out patient records report INR goal 2-3. -12/18/2019 updates: Patient doing well. denies abdominal pain. no chest pain. no shortness of breath. no headache. denies problems with bowel movements. however while on IV heparin and coumadin, INR remains as 1.9. Received increased dose of coumadin as 5 mg for now with IV heparin -12/19/2019 updates: Patient on IV heparin drip. INR remains as 1.9. Patient is upset of remaining in hospital on IV heparin drip. He would like coumadin dosing today to be increased to 8 mg while on IV heparin and he reports regardless of INR tomorrow he will wish to go -12/20/2019: INR is 2.6 and IV heparin stopped last day of antibiotics of Augmentin twice a day medication to end on December 24, 2019 which completes a total 2 week course of antibiotics also discharge medication of pantoprazole home dose carvedilol from 25 mg twice day to be 3.125 mg twice a day on discharge based on hospital monitoring of heart rates and blood pressures medications sent electronically to pharmacy [facility] at [address] [place] [id number] Patient was primarily followed by Dr. Zoltan Camacho of [facility] General Surgery service while patient was under hospitalization care of [facility] affiliated hospitalist team at [facility] because of Perforated acute sigmoid diverticulitis and pelvic abscess which was managed nonoperatively (patient is recommended to follow up with General Surgery clinic in 2 weeks and patient should call to confirm that he has a scheduled appointment [address] [address] Monday through , from 8:00 am to 5:00 pm) Patient should have regular labs drawn as outpatient to check INR levels while on coumadin 4 mg daily on discharge Follow up appointments 12/23/2019 11:20 AM Provider Francisco Apple DO Department Family Practice [facility] 12/31/2019 1:50 PM Provider [facility] [place] [facility], [place] 01/07/2020 1:40 PM Provider Jareth Rdz MD Department Gastroenterology, [facility] for management of Crohn's Disease (5) CAD (coronary artery disease): S/P CABG in 2012 -Continue carvedilol as 3.125 mg BID -holding aspirin for now, hold ezetimibe (6) HTN (hypertension): -Continue carvedilol -continue lisinopril, continue HCTZ (7) Crohn's disease: No longer on medication treatment. Previously followed with [facility] GI at [facility] however no longer following, he reports he plans to continue follow up with [facility] gastroenterology after hospital stay (8) GERD (gastroesophageal reflux disease): -on protonics DVT Prophylaxis -therapeutic INR Total Time Total Time Spent Total Time Spent (In Minutes): 40 minutes Total Time Includes: Examination of the Patient, Discharge Planning, Medication Reconciliation and Communication With Other Providers Discharge Plan Discharge Items Patient Disposition: Home - Self-Care Reason For Visit: PERFORATED DIVERTICULITIS Discharge Diagnosis: Crohns Disease with other complication of Perforated acute sigmoid diverticulitis and Pelvic Abscess (stable) Aortic valve replacement with mechanical valve On chronic systemic anticoagulation with Coumadin Acute Kidney Injury (resolved) Hypertension Activity: Per Instructions section Activity Comment: light activity for 2 weeks Lifting: No more than 25 pounds Bathing: No limitations Exercise Comment: wait 2 weeks- may walk as much as desired Driving/Machine Use: Resume 1 day after discharge Non-emergency contact: Primary Care Provider and Surgeon Call non-emergency contact if: your pain is not controlled and your temperature is above 101 Follow-up/Referrals: Zoltan Camacho MD, FACS [Physician] - 01/01/20 9:15 am (Please call the office upon discharge to schedule a follow up appt in 1-2 weeks Follow up appointment scheduled for 01/01/2020 @ [address] Darwin Camacho.) Jareth Rdz MD [Physician] - 01/07/20 1:40 pm (01/07/2020 1:40 PM Provider Jareth Rdz MD Department Gastroenterology, [facility] ) Francisco Apple DO [Primary Care Provider] - 12/23/19 11:10 am (12/23/2019 11:10 AM Provider Francisco Apple DO Department Family Practice [facility] ) Diet: Heart Healthy and Low Fiber Diet Texture: Dental soft (bite-sized) Addtl Attending Provider Instructions: last day of antibiotics of Augmentin twice a day medication to end on December 24, 2019 which completes a total 2 week course of antibiotics also discharge medication of pantoprazole home dose carvedilol from 25 mg twice day to be 3.125 mg twice a day on discharge based on hospital monitoring of heart rates and blood pressures medications sent electronically to pharmacy [facility] at [address] [place] [id number] Patient was primarily followed by Dr. Zoltan Camacho of [facility] General Surgery service while patient was under hospitalization care of [facility] hospitalist team at [facility] because of Perforated acute sigmoid diverticulitis and pelvic abscess which was managed nonoperatively (patient is recommended to follow up with General Surgery clinic in 2 weeks and patient should call to confirm that he has a scheduled appointment [address] [place] [address] Monday through , from 8:00 am to 5:00 pm) Patient should have regular labs drawn as outpatient to check INR levels while on coumadin 4 mg daily on discharge Follow up appointments 12/23/2019 11:20 AM Provider Francisco Apple DO Department Family Practice [facility] 12/31/2019 1:50 PM Provider [facility] [place] [facility], [place] 01/07/2020 1:40 PM Provider Jareth Rdz MD Department Gastroenterology, [facility] for management of Crohn's Disease Pending Studies at Discharge: No Stand-Alone Forms: My [facility], Smoking Cessation Medications and DC Order Prescriptions: New carvedilol 3.125 mg Tablet 3.125 mg PO BID 30 Days Qty: 60 RF: 0 pantoprazole 40 mg Tablet,Delayed Release (Dr/Ec) 40 mg PO DAILY 30 Days Qty: 30 RF: 0 amoxicillin-pot clavulanate [Augmentin] 875-125 mg Tablet 1 tab PO BIDM 5 Days Qty: 10 RF: 0 Continued atorvastatin 80 mg tablet 80 mg PO QAM RF: 0 omeprazole 40 mg capsule,delayed release(DR/EC) 40 mg PO QAM RF: 0 warfarin 4 mg tablet 4 mg PO HS RF: 0 famotidine 20 mg tablet 20 mg PO BID RF: 0 imiquimod 5 % cream in packet 1 applic TOPICAL DAILY PRN (Reason: warts) RF: 0 ferrous sulfate 325 mg (65 mg iron) tablet 325 mg PO BID RF: 0 hydrochlorothiazide 12.5 mg capsule 12.5 mg PO QAM RF: 0 lisinopril 40 mg tablet 40 mg PO QAM RF: 0 ezetimibe 10 mg tablet 10 mg PO QAM RF: 0 aspirin 81 mg Tablet,Delayed Release (Dr/Ec) 81 mg PO DAILY RF: 0 Discontinued carvedilol 25 mg tablet 25 mg PO BID RF: 0 Discharge Orders: Discharge Order (Routine); Ordered 12/20/19 Ordered By: Kartik Gong/Other Patient Handouts: Diet Low Residue, Diverticulosis Diverticulitis Admission Data Admit Date/Time: 12/10/19 14:08 Attending Provider: Kartik Hernández Admit Provider: Kartik Hernández Primary Care Provider: Francisco Apple Other Providers: Kartik Hernández ; Zoltan Camacho ; Mamta Desir ; Reji Abarca ; Abril Roth Other Interventions: Discharge Summary Assessment (RN) Last Done: 12/20/19 09:42 DC Date/Time DO NOT enter until pt leaves facility: 12/20/19 13:25
== END 2019-12-20 13:25 | disposition home or self-care (01) | DRG 393 ==
LOC: ED 10:08 → SUATTDRO 14:08 → 2N 14:08